=== PATIENT | male | born 1945 | race Asian ===

== ENCOUNTER 2021-05-16 05:01 | Day surgery (SDC) | payer OTHER ==
[2021-05-15 12:16] VITALS: BMI 25.8
[~2021-05-16 05:01] MED LIST: ACETAMINOPHEN 325 MG TABLET (FP) PO PRN
[2021-05-16] MEDS ORDERED: BUPIVACAINE HCL/PF 0.75% 10 ML VIAL ONE (07:35)
[2021-05-16] MEDS ORDERED: POVIDONE-IODINE 5% OPHTHALMIC PREP 30 ML SOLUTION ONE (07:36)
[2021-05-16] MEDS ORDERED: LIDOCAINE HCL/PF 1% SDV 5ML VIAL ONE (07:36)
[2021-05-16] MEDS ORDERED: LIDOCAINE HCL/PF 2% SDV 5ML VIAL ONE (07:36)
[2021-05-16] MEDS ORDERED: OFLOXACIN 0.3% OPHTHALMIC SOLUTION 5 ML BOTTLE ONE (07:55)
[2021-05-16] MEDS ORDERED: KETOROLAC TROMETHAMINE 0.5% EYE DROP 1 DROP DROPS ONE (07:55)
[2021-05-16] MEDS ORDERED: TROPICAMIDE 1% OPHTH SOLN 15 ML BOTTLE ONE (07:55)
[2021-05-16] MEDS ORDERED: CYCLOPENTOLATE HCL 1% OPHTH SOLN 2 ML BOTTLE ONE (07:56)
[2021-05-16] MEDS ORDERED: PHENYLEPHRINE 2.5% OPTHALMIC DROP BOTTLE ONE (07:56)
[2021-05-16] MEDS ORDERED: PHENYLEPHRINE/KETOROLAC 4 ML VIAL IO ONE ×2 (08:15→10:04)
[2021-05-16] MEDS ORDERED: OFLOXACIN 0.3% OPHTHALMIC SOLUTION 5 ML BOTTLE OP SCH (08:30)
[2021-05-16] MEDS ORDERED: KETOROLAC TROMETHAMINE 0.5% EYE DROP 1 DROP DROPS OP SCH (08:30)
[2021-05-16] MEDS ORDERED: CYCLOPENTOLATE HCL 1% OPHTH SOLN 2 ML BOTTLE OP SCH (08:30)
[2021-05-16] MEDS ORDERED: PHENYLEPHRINE 2.5% OPHTH SOLN 15 ML BOTTLE OP SCH (08:30)
[2021-05-16] MEDS ORDERED: TROPICAMIDE 1% OPHTH SOLN 15 ML BOTTLE OP SCH (08:30)
[2021-05-16] MEDS ORDERED: TETRACAINE 0.5% OPHTH SOLN 2 ML BOTTLE OS ONE ×2 (10:00)
[2021-05-16] MEDS ORDERED: POVIDONE-IODINE 5% OPHTHALMIC PREP 30 ML SOLUTION OS ONE ×2 (10:01)
[2021-05-16] MEDS ORDERED: BSS (NA/CA/MG/K) BALANCED SALT SOLUTION OPHTH SOLN 15 ML BOTTLE OS ONE (10:02)
[2021-05-16] MEDS ORDERED: CHONDROITIN SU A/HYALUR SOD 1 KIT IO ONE (10:03)
[2021-05-16] MEDS ORDERED: LIDOCAINE HCL 1% PRESERVATIVE FREE - 30ML VIAL INF ONE (10:03)
[2021-05-16] MEDS ORDERED: EPINEPHrine 1:1,000 1 MG/1 ML - 30ML VIAL (INJECTION) SQ ONE (10:04)
[2021-05-16] MEDS ORDERED: TETRACAINE 0.5% OPHTH SOLN 2 ML BOTTLE ONE (12:15)
[2021-05-16 14:38] VITALS: BP 141/56; PULSE 72; TEMP 98
== END 2021-05-16 11:30 | disposition home or self-care (01) ==
LOC: JASU-SURG 05:01
PROVIDERS: ATTEND Ophthalmology
PROC: 08RK3JZ Replacement of Left Lens with Synthetic Substitute, Percutaneous Approach (ICD-10-PCS; principal; 2021-05-16 10:00)
DX: H26.9 Unspecified cataract (principal); E11.9 Type 2 diabetes mellitus without complications
CPT/HCPCS: 82962; J1097

== ENCOUNTER 2021-05-30 05:15 | Day surgery (SDC) | payer OTHER ==
[2021-05-28 17:26] VITALS: BMI 25.8
[~2021-05-30 05:15] MED LIST changes: +BSS (NA/CA/MG/K) BALANCED SALT SOLUTION OPHTH SOLN 15 ML BOTTLE IO ONE; +CHONDROITIN SU A/HYALUR SOD 1 KIT IO ONE; +EPINEPHrine/PF 1 MG/1 ML (1:1,000) AMPULE IO ONE; +LIDOCAINE HCL 1% PRESERVATIVE FREE - 30ML VIAL IO ONE
[2021-05-30] MEDS ORDERED: TETRACAINE 0.5% OPHTH SOLN 2 ML BOTTLE ONE (07:16)
[2021-05-30] MEDS ORDERED: POVIDONE-IODINE 5% OPHTHALMIC PREP 30 ML SOLUTION ONE (07:16)
[2021-05-30] MEDS ORDERED: LIDOCAINE HCL/PF 1% SDV 5ML VIAL ONE (07:16)
[2021-05-30] MEDS ORDERED: OFLOXACIN 0.3% OPHTHALMIC SOLUTION 5 ML BOTTLE ONE (08:10)
[2021-05-30] MEDS ORDERED: TROPICAMIDE 1% OPHTH SOLN 15 ML BOTTLE ONE (08:11)
[2021-05-30] MEDS ORDERED: CYCLOPENTOLATE HCL 1% OPHTH SOLN 2 ML BOTTLE ONE (08:11)
[2021-05-30] MEDS ORDERED: KETOROLAC TROMETHAMINE 0.5% EYE DROP 1 DROP DROPS ONE (08:11)
[2021-05-30] MEDS ORDERED: PHENYLEPHRINE 2.5% OPTHALMIC DROP BOTTLE ONE (08:12)
[2021-05-30] MEDS: OFLOXACIN 0.3% OPHTHALMIC SOLUTION 5 ML BOTTLE OP SCH ×3 (08:15→08:40)
[2021-05-30] MEDS: PHENYLEPHRINE 2.5% OPHTH SOLN 15 ML BOTTLE OP SCH ×3 (08:15→08:40)
[2021-05-30] MEDS: KETOROLAC TROMETHAMINE 0.5% EYE DROP 1 DROP DROPS OP SCH ×3 (08:15→08:40)
[2021-05-30] MEDS: CYCLOPENTOLATE HCL 1% OPHTH SOLN 2 ML BOTTLE OP SCH ×3 (08:15→08:40)
[2021-05-30] MEDS: TROPICAMIDE 1% OPHTH SOLN 15 ML BOTTLE OP SCH ×3 (08:15→08:40)
[2021-05-30] MEDS ORDERED: MIDAZOLAM HCL 2 MG/2 ML SINGLE DOSE VIAL ONE (09:13)
[2021-05-30] MEDS ORDERED: TETRACAINE 0.5% OPHTH SOLN 2 ML BOTTLE OD ONE (09:16)
[2021-05-30] MEDS ORDERED: POVIDONE-IODINE 5% OPHTHALMIC PREP 30 ML SOLUTION OD ONE (09:18)
[2021-05-30] MEDS ORDERED: LIDOCAINE HCL 1% PRESERVATIVE FREE - 30ML VIAL IO ONE (09:21)
[2021-05-30] MEDS ORDERED: BSS (NA/CA/MG/K) BALANCED SALT SOLUTION OPHTH SOLN 15 ML BOTTLE IO ONE (09:22)
[2021-05-30] MEDS ORDERED: CHONDROITIN SU A/HYALUR SOD 1 KIT IO ONE (09:23)
[2021-05-30] MEDS ORDERED: EPINEPHrine/PF 1 MG/1 ML (1:1,000) AMPULE IO ONE (09:29)
[2021-05-30] MEDS ORDERED: PHENYLEPHRINE/KETOROLAC 4 ML VIAL IO ONE (09:29)
[2021-05-30 11:25] VITALS: BP 140/70; PULSE 68; TEMP 97
== END 2021-05-30 11:00 | disposition home or self-care (01) ==
LOC: JASU-SURG 05:15
PROVIDERS: ATTEND Ophthalmology
PROC: 08RJ3JZ Replacement of Right Lens with Synthetic Substitute, Percutaneous Approach (ICD-10-PCS; principal; 2021-05-30 09:00)
DX: H26.9 Unspecified cataract (principal); E11.9 Type 2 diabetes mellitus without complications
CPT/HCPCS: 82962; J1097

== ENCOUNTER 2023-12-01 17:46 | Inpatient (IN) | payer OTHER ==
[2023-12-01] MEDS: SODIUM CHLORIDE 0.9% 1000 ML INFUS.BAG IV STA (19:50)
[2023-12-01] MEDS: ACETAMINOPHEN 1000 MG/100 ML BAG IVPB ONE (19:50)
[2023-12-01 19:56] LABS: EOS % 0.1 % (0-4.5); HEMATOCRIT 37.3 % (35.4-49); HEMOGLOBIN 12.1 GM/dL (11.7-16.9); LYMPH % 9.2 % (8-40); MCH 27.8 pg (25.7-33.7); MCHC 32.5 g/dl (32.0-35.9); MEAN CELL VOLUME 85.6 fl (80-96); MEAN PLT VOLUME 7.5 fl (7.5-11.1); MONO % 4.7 % (3.8-10.2); PLATELET COUNT 242 10^3/uL (134-434); RBC 4.36 M/mm3 (4.00-5.60); RDW 15.8 % (11.9-15.9); WHITE BLOOD COUNT 15.7 K/mm3 (4.0-10.0)
[2023-12-01 20:03] LABS: INR 0.98 (0.83-1.09); PROTHROMBIN TIME (PATIENT) 11.1 SEC (9.7-13.0)
[2023-12-01 20:05] LABS: ACTIVATED PTT 32.9 SECONDS (25.2-36.5)
[2023-12-01] MEDS ORDERED: ACETAMINOPHEN INJECTION 100 ML IVPB ONE (20:09)
[2023-12-01] MEDS ORDERED: PIPERACILLIN/TAZOB 4.5 GM 4.5 GM/100 ML BAG IVPB ONE (20:10)
[2023-12-01] MEDS: ONDANSETRON 4 MG/2 ML VIAL IVPUSH ONE (20:10)
[2023-12-01] MEDS: PIPERACILLIN/TAZOBACTAM 4.5 GM VIAL IVPB ONE (20:10)
[2023-12-01] MEDS ORDERED: ONDANSETRON 4 MG/2 ML VIAL ONE (20:11)
[2023-12-01 20:13] LABS: POTASSIUM 4.6 mmol/L (3.5-5.1)
[2023-12-01 20:16] LABS: ALBUMIN 3.2 g/dl (3.4-5.0); CALCIUM 9.2 mg/dL (8.5-10.1)
[2023-12-01 20:17] LABS: BLOOD UREA NITROGEN 25.1 mg/dL (7-18)
[2023-12-01 20:18] LABS: VENOUS BASE EXCESS -0.5 mmol/L (-2-2); VENOUS O2 SATURATION 23.1 % (70-80); VENOUS PCO2 56.5 mmHg (38-52); VENOUS PH 7.302 (7.310-7.410)
[2023-12-01 20:20] LABS: BILIRUBIN,TOTAL 0.6 mg/dL (0.2-1); TOT PROT 6.9 g/dl (6.4-8.2)
[2023-12-01 20:23] LABS: LACTIC ACID 2.7 mmol/L (0.4-2.0)
[2023-12-01] MEDS: VANCOMYCIN 1,250 MG in DEXTROSE 5%-WATER - 500 ML IVPB ONE (21:18)
[2023-12-01] MEDS: SODIUM CHLORIDE 0.9% 500 ML INFUS.BAG IV ONE (21:21)
[2023-12-02 01:12] LABS: LACTIC ACID 2.2 mmol/L (0.4-2.0)
[2023-12-02] MEDS ORDERED: ACETAMINOPHEN INJECTION 100 ML IVPB ONE ×2 (01:23→10:31)
[2023-12-02] MEDS: ACETAMINOPHEN 1000 MG/100 ML BAG IVPB ONE ×2 (01:27→10:31)
[2023-12-02 01:31] LABS: EPI CELLS 9 /uL (0-25.1); HYALINE CASTS 0 /uL (0-3.1); PH,URINE 5.5 (5.0-8.0); URINE APPEARANCE Error; URINE BILIRUBIN NEGATIVE (NEGATIVE); URINE COLOR YELLOW; URINE GLUCOSE (UA) NEGATIVE (NEGATIVE); URINE KETONE NEGATIVE (NEGATIVE); URINE LEUK ESTERASE 2+ (NEGATIVE); URINE NITRITE POSITIVE (NEGATIVE); URINE PROTEIN 1+ (NEGATIVE); URINE RBC 27 /uL (0-23.9); URINE UROBILINOGEN 0.2 mg/dL (0.2-1.0); URINE WBC 1454 /uL (0-25.8)
[2023-12-02] MEDS: SODIUM CHLORIDE 1,000 ML IV STA ×2 (04:22→16:06)
[2023-12-02] MEDS ORDERED: PIPERACILLIN/TAZOB 3.375 GM 3.375 GM/50 ML BAG IVPB ONE ×2 (05:44→11:07)
[2023-12-02] MEDS: SODIUM CHLORIDE 1,000 ML IV SCH ×2 (06:13→12:37)
[2023-12-02] MEDS: PIPERACILLIN/TAZOB 3.375 GM 3.375 GM in DEXTROSE 5%-WATER - 50 ML IVPB SCH (06:13)
[2023-12-02 06:43] LABS: HEMOGLOBIN 12.1 GM/dL (11.7-16.9); MCH 28.4 pg (25.7-33.7); MCHC 32.7 g/dl (32.0-35.9); MEAN CELL VOLUME 86.9 fl (80-96); MEAN PLT VOLUME 7.9 fl (7.5-11.1); PLATELET COUNT 190 10^3/uL (134-434); RBC 4.26 M/mm3 (4.00-5.60); RDW 15.9 % (11.9-15.9); WHITE BLOOD COUNT 18.1 K/mm3 (4.0-10.0)
[2023-12-02 06:58] LABS: POTASSIUM 4.1 mmol/L (3.5-5.1)
[2023-12-02 07:01] LABS: ALBUMIN 2.7 g/dl (3.4-5.0); BLOOD UREA NITROGEN 20.1 mg/dL (7-18); CALCIUM 8.3 mg/dL (8.5-10.1)
[2023-12-02 07:04] LABS: CREATININE 0.9 mg/dL (0.55-1.3)
[2023-12-02 07:06] LABS: BILIRUBIN,TOTAL 0.8 mg/dL (0.2-1); TOT PROT 6.1 g/dl (6.4-8.2)
[2023-12-02] MEDS ORDERED: INSULIN ASPART SLIDING SCALE (NOVOLOG) 1 VIAL SQ ONE ×3 (07:28→16:55)
[2023-12-02] MEDS: INSULIN ASPART SLIDING SCALE (NOVOLOG) 1 VIAL SQ SCH (07:28)
[2023-12-02] MEDS: TACROLIMUS ANHYDROUS 1 MG CAPSULE PO SCH ×2 (07:46→22:00)
[2023-12-02] MEDS ORDERED: TAMSULOSIN HCL 0.4 MG CAP ONE (09:08)
[2023-12-02] MEDS: TAMSULOSIN HCL 0.4 MG CAP PO SCH (09:19)
[2023-12-02] MEDS ORDERED: APIXABAN 2.5 MG TABLET PO SCH (10:00)
[2023-12-02] MEDS ORDERED: ASCORBIC ACID 500 MG TABLET (FP) ONE (11:06)
[2023-12-02] MEDS ORDERED: VANCOMYCIN 1 GRAM (PRE-DOCKED) 1,000 MG/250 ML BAG IVPB ONE (11:07)
[2023-12-02] MEDS: VANCOMYCIN/WATER FOR INJ (PEG) 1,000 MG/200 ML BAG IVPB SCH (11:30)
[2023-12-02] MEDS: predniSONE 5 MG TABLET (UD) PO SCH (11:30)
[2023-12-02] MEDS: ASCORBIC ACID 500 MG TABLET (FP) PO SCH (11:31)
[2023-12-02] MEDS: SODIUM CHLORIDE 250 ML IV STA (12:37)
[2023-12-02] MEDS: ENOXAPARIN NA (PORCINE) 80 MG/0.8 ML DISP.SYRIN SQ SCH (12:40)
[2023-12-02] MEDS ORDERED: ENOXAPARIN NA (PORCINE) 60 MG/0.6 ML DISP.SYRIN SQ ONE (12:40)
[2023-12-02] MEDS: MEROPENEM 1 GM in DEXTROSE 5%-WATER 100 ML IVPB SCH (17:53)
[2023-12-02] MEDS: MIDODRINE HCL 5 MG TABLET PO SCH (17:53)
[2023-12-02 18:34] VITALS: BMI 22.7
[2023-12-02] MEDS ORDERED: VANCOMYCIN 1,000 MG in DEXTROSE 5%-WATER - 250 ML IVPB SCH (21:00)
[2023-12-02] MEDS: ATORVASTATIN CA 80 MG TABLET (FP) PO SCH (22:51)
[2023-12-03] MEDS ORDERED: PIPERACILLIN/TAZOB 3.375 GM 3.375 GM in DEXTROSE 5%-WATER - 50 ML IVPB SCH (02:00)
[2023-12-03 08:04] LABS: BASO % 0.4 % (0-2.0); EOS % 1.5 % (0-4.5); HEMATOCRIT 32.8 % (35.4-49); LYMPH % 9.9 % (8-40); MCH 28.8 pg (25.7-33.7); MCHC 33.4 g/dl (32.0-35.9); MEAN CELL VOLUME 86.1 fl (80-96); MEAN PLT VOLUME 7.8 fl (7.5-11.1); MONO % 4.7 % (3.8-10.2); NEUT % 83.5 % (42.8-82.8); PLATELET COUNT 190 10^3/uL (134-434); RBC 3.81 M/mm3 (4.00-5.60); WHITE BLOOD COUNT 9.9 K/mm3 (4.0-10.0)
[2023-12-03 08:17] LABS: POTASSIUM 3.8 mmol/L (3.5-5.1)
[2023-12-03 08:20] LABS: INR 1.14 (0.83-1.09); PROTHROMBIN TIME (PATIENT) 12.8 SEC (9.7-13.0)
[2023-12-03 08:22] LABS: CALCIUM 7.7 mg/dL (8.5-10.1)
[2023-12-03 08:23] LABS: ALBUMIN 2.3 g/dl (3.4-5.0); MAGNESIUM 1.5 mg/dL (1.8-2.4)
[2023-12-03 08:25] LABS: CREATININE 0.8 mg/dL (0.55-1.3)
[2023-12-03 08:27] LABS: BILIRUBIN,TOTAL 0.4 mg/dL (0.2-1); TOT PROT 5.5 g/dl (6.4-8.2)
[2023-12-03] MEDS: MAGNESIUM SULF 50% (8.12 MEQ/2 ML-1 GM VIAL) IVPB ONE (12:09)
[2023-12-03] MEDS: INSULIN ASPART SLIDING SCALE (NOVOLOG) 1 VIAL SQ SCH (17:17)
[2023-12-03] MEDS: TACROLIMUS 0.5 MG CAPSULE PO SCH (21:15)
[2023-12-04 07:36] LABS: BASO % 0.5 % (0-2.0); EOS % 2.1 % (0-4.5); HEMATOCRIT 32.1 % (35.4-49); HEMOGLOBIN 10.5 GM/dL (11.7-16.9); LYMPH % 20.3 % (8-40); MCHC 32.6 g/dl (32.0-35.9); MEAN CELL VOLUME 85.9 fl (80-96); MEAN PLT VOLUME 7.8 fl (7.5-11.1); MONO % 5.6 % (3.8-10.2); NEUT % 71.5 % (42.8-82.8); PLATELET COUNT 208 10^3/uL (134-434); RBC 3.73 M/mm3 (4.00-5.60); RDW 16.1 % (11.9-15.9)
[2023-12-04 07:37] LABS: INR 0.98 (0.83-1.09); PROTHROMBIN TIME (PATIENT) 11.1 SEC (9.7-13.0)
[2023-12-04 07:49] LABS: POTASSIUM 4.5 mmol/L (3.5-5.1)
[2023-12-04 07:51] LABS: CALCIUM 8.1 mg/dL (8.5-10.1)
[2023-12-04 07:52] LABS: ALBUMIN 2.3 g/dl (3.4-5.0); BLOOD UREA NITROGEN 13.5 mg/dL (7-18); MAGNESIUM 1.9 mg/dL (1.8-2.4)
[2023-12-04 07:54] LABS: PHOSPHOROUS 1.9 mg/dL (2.5-4.9)
[2023-12-04 07:55] LABS: CREATININE 0.8 mg/dL (0.55-1.3)
[2023-12-04 07:56] LABS: BILIRUBIN,TOTAL 1.1 mg/dL (0.2-1); TOT PROT 5.5 g/dl (6.4-8.2)
[2023-12-04] MEDS: NAPH,MB-DB/K PH,MBDB POWDER PACKET PO ONE (11:12)
[2023-12-04 16:03] LABS: BF WBC & OTHER NUCLEATED CELLS 120 /mm3
[2023-12-04 17:42] LABS: BODY FLUID MONOCYTE 9 %
[2023-12-04 17:43] LABS: BODY FLUID MACROPHAGES 53 %; BODY FLUID MESOTHELIAL 4 %
[2023-12-04] MEDS: APIXABAN 2.5 MG TABLET PO SCH (22:57)
[2023-12-04] MEDS: NAPH,MB-DB/K PH,MBDB POWDER PACKET PO SCH (22:57)
[2023-12-04] MEDS: INSULIN (LEVEMIR) 100 UNITS/ML UNITS SQ SCH (22:57)
[2023-12-04] MEDS: ACETAMINOPHEN 1000 MG/100 ML BAG IVPB ONE (23:00)
[2023-12-05] MEDS: INSULIN (LEVEMIR) 100 UNITS/ML UNITS SQ SCH ×2 (06:00→22:07)
[2023-12-05 06:37] LABS: BASO % 0.2 % (0-2.0); EOS % 1.8 % (0-4.5); HEMATOCRIT 31.6 % (35.4-49); HEMOGLOBIN 10.4 GM/dL (11.7-16.9); LYMPH % 24.1 % (8-40); MCH 28.3 pg (25.7-33.7); MEAN CELL VOLUME 85.7 fl (80-96); MEAN PLT VOLUME 7.2 fl (7.5-11.1); NEUT % 67.9 % (42.8-82.8); PLATELET COUNT 206 10^3/uL (134-434); RBC 3.69 M/mm3 (4.00-5.60); RDW 15.6 % (11.9-15.9); WHITE BLOOD COUNT 7.3 K/mm3 (4.0-10.0)
[2023-12-05 06:39] LABS: INR 1.04 (0.83-1.09)
[2023-12-05 06:59] LABS: POTASSIUM 4.2 mmol/L (3.5-5.1)
[2023-12-05 07:01] LABS: CALCIUM 8.1 mg/dL (8.5-10.1)
[2023-12-05 07:02] LABS: ALBUMIN 2.1 g/dl (3.4-5.0); BLOOD UREA NITROGEN 15.5 mg/dL (7-18); MAGNESIUM 1.8 mg/dL (1.8-2.4)
[2023-12-05 07:05] LABS: CREATININE 0.8 mg/dL (0.55-1.3)
[2023-12-05 07:07] LABS: BILIRUBIN,TOTAL 0.3 mg/dL (0.2-1); TOT PROT 5.2 g/dl (6.4-8.2)
[2023-12-05 08:40] VITALS: RESP 18
[2023-12-05] MEDS: ASPIRIN 81 MG CHEWABLE TABLETS PO SCH (10:10)
[2023-12-05 11:13] LABS: MAGNESIUM 1.5 mg/dL (1.8-2.4)
[2023-12-05 14:11] LABS: BODY FLUID ALBUMIN 2.4 g/dL (Not Estab.)
[2023-12-06] MEDS: INSULIN (LEVEMIR) 100 UNITS/ML UNITS SQ SCH ×2 (06:06→21:41)
[2023-12-06 07:16] LABS: HEMATOCRIT 34.6 % (35.4-49); HEMOGLOBIN 11.3 GM/dL (11.7-16.9); MCHC 32.6 g/dl (32.0-35.9); MEAN CELL VOLUME 85.8 fl (80-96); MEAN PLT VOLUME 7.2 fl (7.5-11.1); PLATELET COUNT 205 10^3/uL (134-434); RBC 4.03 M/mm3 (4.00-5.60); RDW 15.7 % (11.9-15.9); WHITE BLOOD COUNT 7.2 K/mm3 (4.0-10.0)
[2023-12-06 07:41] LABS: CALCIUM 8.7 mg/dL (8.5-10.1)
[2023-12-06 07:43] LABS: CREATININE 0.8 mg/dL (0.55-1.3)
[2023-12-06] MEDS ORDERED: INSULIN ASPART SLIDING SCALE (NOVOLOG) 1 VIAL SQ ONE (11:31)
[2023-12-06] MEDS: VITAMIN B COMP W-C 1 EA TABLET (NEPHRO-VITE) PO SCH (14:36)
[2023-12-07] MEDS: INSULIN (LEVEMIR) 100 UNITS/ML UNITS SQ SCH ×2 (06:10→22:11)
[2023-12-07 08:38] LABS: POTASSIUM 4.1 mmol/L (3.5-5.1)
[2023-12-07 08:54] LABS: HEMATOCRIT 36.9 % (35.4-49); MCH 27.9 pg (25.7-33.7); MCHC 32.5 g/dl (32.0-35.9); MEAN CELL VOLUME 85.6 fl (80-96); MEAN PLT VOLUME 7.8 fl (7.5-11.1); PLATELET COUNT 218 10^3/uL (134-434); RBC 4.31 M/mm3 (4.00-5.60); RDW 15.6 % (11.9-15.9); WHITE BLOOD COUNT 7.8 K/mm3 (4.0-10.0)
[2023-12-07 08:59] LABS: BILIRUBIN,TOTAL 0.6 mg/dL (0.2-1); CALCIUM 9.1 mg/dL (8.5-10.1); MAGNESIUM 1.7 mg/dL (1.8-2.4)
[2023-12-07 09:00] LABS: TOT PROT 6.6 g/dl (6.4-8.2)
[2023-12-07 09:01] LABS: CREATININE 0.7 mg/dL (0.55-1.3); PHOSPHOROUS 2.2 mg/dL (2.5-4.9)
[2023-12-07 09:07] LABS: ALBUMIN 2.8 g/dl (3.4-5.0)
[2023-12-07] MEDS: COLLAGENASE CLOSTRIDIUM HIST. 30 GRAMS TUBE TP SCH ×2 (14:55→16:05)
[2023-12-07] MEDS: INSULIN ASPART SLIDING SCALE (NOVOLOG) 1 VIAL SQ SCH (18:12)
[2023-12-07] MEDS: MEROPENEM 1 GM in DEXTROSE 5%-WATER 100 ML IVPB SCH (18:12)
[2023-12-07] MEDS: MIDODRINE HCL 5 MG TABLET PO SCH (18:13)
[2023-12-07] MEDS: APIXABAN 2.5 MG TABLET PO SCH (22:12)
[2023-12-07] MEDS: ATORVASTATIN CA 80 MG TABLET (FP) PO SCH (22:12)
[2023-12-07] MEDS: TACROLIMUS 0.5 MG CAPSULE PO SCH (22:13)
[2023-12-08] MEDS: INSULIN (LEVEMIR) 100 UNITS/ML UNITS SQ SCH (06:05)
[2023-12-08] MEDS: TACROLIMUS ANHYDROUS 1 MG CAPSULE PO SCH (06:06)
[2023-12-08 07:09] VITALS: PULSE 74; TEMP 98.4
[2023-12-08] MEDS ORDERED: MAGNESIUM SULF 50% (8.12 MEQ/2 ML-1 GM VIAL) IVPB ONE (08:27)
[2023-12-08] MEDS: predniSONE 5 MG TABLET (UD) PO SCH (11:40)
[2023-12-08] MEDS: VITAMIN B COMP W-C 1 EA TABLET (NEPHRO-VITE) PO SCH (11:40)
[2023-12-08] MEDS: TAMSULOSIN HCL 0.4 MG CAP PO SCH (11:41)
[2023-12-08] MEDS: ASPIRIN 81 MG CHEWABLE TABLETS PO SCH (11:41)
[2023-12-08] MEDS: ASCORBIC ACID 500 MG TABLET (FP) PO SCH (11:41)
[2023-12-08] MEDS: NAPH,MB-DB/K PH,MBDB POWDER PACKET PO ONE (11:42)
[2023-12-08] MEDS: MAGNESIUM SULF 50% (8.12 MEQ/2 ML-1 GM VIAL) IVPB ONE (11:50)
[2023-12-08] MEDS ORDERED: INSULIN ASPART SLIDING SCALE (NOVOLOG) 1 VIAL SQ ONE (12:10)
[2023-12-08 14:12] VITALS: BP 102/61
== END 2023-12-08 15:10 | disposition home or self-care (01) | DRG 871 ==
LOC: JER 17:46 → JERBED 12-02 01:26 → J4W 12-02 17:32 → J8W 12-07 16:04
PROVIDERS: ADMIT Internal Medicine; ATTEND Internal Medicine
PROC: 0W993ZX Drainage of Right Pleural Cavity, Percutaneous Approach, Diagnostic (ICD-10-PCS; principal; 2023-12-04)
DX: A41.9 Sepsis, unspecified organism (principal); G93.41 Metabolic encephalopathy; N39.0 Urinary tract infection, site not specified; J90 Pleural effusion, not elsewhere classified; J95.811 Postprocedural pneumothorax; Z94.0 Kidney transplant status; I25.10 Atherosclerotic heart disease of native coronary artery without angina pectoris; E11.319 Type 2 diabetes mellitus with unspecified diabetic retinopathy without macular edema; E11.40 Type 2 diabetes mellitus with diabetic neuropathy, unspecified; N31.9 Neuromuscular dysfunction of bladder, unspecified; I48.0 Paroxysmal atrial fibrillation; L89.622 Pressure ulcer of left heel, stage 2; R19.7 Diarrhea, unspecified; Y83.8 Other surgical procedures as the cause of abnormal reaction of the patient, or of later complication, without mention of misadventure at the time of the procedure; E83.39 Other disorders of phosphorus metabolism
CPT/HCPCS: 0241U-QW; 32555; 36415; 71045-TC-FY; 71046-TC-FY; 71250-TC; 76775-TC; 76776-TC; 76942; 80048; 80053; 80197; 81003; 82042; 82140; 82150; 82272; 82465; 82803; 82945; 82962; 83036; 83605; 83615; 83735; 83986; 84100; 84157; 84478; 84484; 85025; 85027; 85610; 85730; 86850; 86900; 86901; 87040; 87070; 87075; 87081; 87086; 87102; 87116; 87186; 87205; 87206; 87210; 88108; 88305-TC; 93005; 93010; 93306-TC; 97116-GP; 97162-GP; 99285-25; J0131

== ENCOUNTER 2024-02-10 09:46 | Inpatient (IN) | payer OTHER ==
[2024-02-10 10:55] LABS: BASO % 0.7 % (0-2.0); EOS % 1.8 % (0-4.5); HEMATOCRIT 36.8 % (35.4-49); HEMOGLOBIN 12.2 GM/dL (11.7-16.9); LYMPH % 12.7 % (8-40); MCH 28.2 pg (25.7-33.7); MCHC 33.2 g/dl (32.0-35.9); MEAN CELL VOLUME 84.8 fl (80-96); MONO % 6.5 % (3.8-10.2); NEUT % 78.3 % (42.8-82.8); PLATELET COUNT 213 10^3/uL (134-434); RBC 4.34 M/mm3 (4.00-5.60); WHITE BLOOD COUNT 7.5 K/mm3 (4.0-10.0)
[2024-02-10 11:05] LABS: INR 0.92 (0.83-1.09); PROTHROMBIN TIME (PATIENT) 10.6 SEC (9.7-13.0)
[2024-02-10 11:07] LABS: ACTIVATED PTT 32.7 SECONDS (25.2-36.5)
[2024-02-10 11:13] LABS: POTASSIUM 4.1 mmol/L (3.5-5.1)
[2024-02-10 11:15] LABS: CALCIUM 9.5 mg/dL (8.5-10.1)
[2024-02-10 11:16] LABS: ALBUMIN 2.8 g/dl (3.4-5.0); BLOOD UREA NITROGEN 24.2 mg/dL (7-18)
[2024-02-10 11:19] LABS: CREATININE 1.2 mg/dL (0.55-1.3)
[2024-02-10 11:20] LABS: BILIRUBIN,TOTAL 0.7 mg/dL (0.2-1); TOT PROT 6.9 g/dl (6.4-8.2)
[2024-02-10] MEDS: SODIUM CHLORIDE 0.9% 500 ML INFUS.BAG IV ONE (11:40)
[2024-02-10 13:39] LABS: EPI CELLS 1 /uL (0-25.1); HYALINE CASTS 0 /uL (0-3.1); URINE APPEARANCE CLOUDY; URINE BACTERIA >9,000 /uL (0-1359); URINE BILIRUBIN NEGATIVE (NEGATIVE); URINE COLOR YELLOW; URINE GLUCOSE (UA) NEGATIVE (NEGATIVE); URINE KETONE NEGATIVE (NEGATIVE); URINE LEUK ESTERASE 3+ (NEGATIVE); URINE NITRITE NEGATIVE (NEGATIVE); URINE PROTEIN TRACE (NEGATIVE); URINE RBC 19 /uL (0-23.9); URINE UROBILINOGEN 0.2 mg/dL (0.2-1.0); URINE WBC 904 /uL (0-25.8)
[2024-02-10] MEDS ORDERED: CEFTRIAXONE 1 GM/50 ML BAG ONE (14:14)
[2024-02-10] MEDS ORDERED: AZITHROMYCIN IVPB 500 MG/250 ML BAG IVPB ONE (14:14)
[2024-02-10] MEDS: CEFTRIAXONE 1,000 MG in DEXTROSE 5%-WATER - 50 ML IVPB ONE (14:25)
[2024-02-10] MEDS: AZITHROMYCIN IVPB 500 MG in DEXTROSE 5%-WATER - 250 ML IVPB ONE (14:48)
[2024-02-10 17:31] VITALS: BMI 20.5
[2024-02-10] MEDS: MEROPENEM 1 GM in DEXTROSE 5%-WATER 100 ML IVPB SCH (18:49)
[2024-02-10] MEDS ORDERED: HEPARIN NA (PORCINE) 5,000 UNITS/ML 1ML VIAL SQ SCH (22:00)
[2024-02-10] MEDS: ATORVASTATIN CA 80 MG TABLET (FP) PO SCH (22:08)
[2024-02-10] MEDS: TACROLIMUS 0.5 MG CAPSULE PO SCH (22:08)
[2024-02-10] MEDS: APIXABAN 2.5 MG TABLET PO SCH (22:08)
[2024-02-10] MEDS: SENNOSIDES 8.6MG TABLET (FP) PO SCH (22:08)
[2024-02-11] MEDS: TACROLIMUS ANHYDROUS 1 MG CAPSULE PO SCH (06:41)
[2024-02-11 08:59] LABS: BASO % 0.8 % (0-2.0); HEMOGLOBIN 11.5 GM/dL (11.7-16.9); LYMPH % 21.3 % (8-40); MCH 27.8 pg (25.7-33.7); MCHC 32.7 g/dl (32.0-35.9); MEAN CELL VOLUME 85.1 fl (80-96); MEAN PLT VOLUME 8.3 fl (7.5-11.1); MONO % 7.5 % (3.8-10.2); NEUT % 68.4 % (42.8-82.8); PLATELET COUNT 198 10^3/uL (134-434); RBC 4.11 M/mm3 (4.00-5.60); RDW 14.9 % (11.9-15.9); WHITE BLOOD COUNT 6.3 K/mm3 (4.0-10.0)
[2024-02-11 09:18] LABS: POTASSIUM 4.7 mmol/L (3.5-5.1)
[2024-02-11] MEDS: predniSONE 5 MG TABLET (UD) PO SCH (09:46)
[2024-02-11] MEDS: TAMSULOSIN HCL 0.4 MG CAP PO SCH (09:46)
[2024-02-11] MEDS: FERROUS SO4 325 MG TABLET (FP) PO SCH (09:46)
[2024-02-11] MEDS: ASPIRIN 81 MG CHEWABLE TABLETS PO SCH (09:46)
[2024-02-11] MEDS ORDERED: SODIUM CHLORIDE 0.45% 1,000 ML IV SCH (13:15)
[2024-02-11 15:37] VITALS: RESP 18
[2024-02-11] MEDS: MEROPENEM 1 GM in DEXTROSE 5%-WATER 100 ML IVPB SCH ×2 (17:40→19:31)
[2024-02-12 10:05] LABS: BASO % 0.7 % (0-2.0); EOS % 2.1 % (0-4.5); HEMATOCRIT 35.5 % (35.4-49); HEMOGLOBIN 11.9 GM/dL (11.7-16.9); LYMPH % 23.4 % (8-40); MCH 28.2 pg (25.7-33.7); MCHC 33.4 g/dl (32.0-35.9); MEAN CELL VOLUME 84.5 fl (80-96); MEAN PLT VOLUME 8.3 fl (7.5-11.1); MONO % 7.3 % (3.8-10.2); NEUT % 66.5 % (42.8-82.8); PLATELET COUNT 191 10^3/uL (134-434); RBC 4.21 M/mm3 (4.00-5.60); RDW 14.5 % (11.9-15.9); WHITE BLOOD COUNT 7.2 K/mm3 (4.0-10.0)
[2024-02-12 10:22] LABS: POTASSIUM 4.6 mmol/L (3.5-5.1)
[2024-02-12 10:29] LABS: ALBUMIN 2.6 g/dl (3.4-5.0); BLOOD UREA NITROGEN 22.7 mg/dL (7-18); CALCIUM 8.9 mg/dL (8.5-10.1); MAGNESIUM 1.7 mg/dL (1.8-2.4)
[2024-02-12 10:32] LABS: CREATININE 1.2 mg/dL (0.55-1.3)
[2024-02-12 10:34] LABS: BILIRUBIN,TOTAL 0.7 mg/dL (0.2-1); TOT PROT 6.3 g/dl (6.4-8.2)
[2024-02-12] MEDS ORDERED: predniSONE 5 MG TABLET (UD) PO SCH (16:42)
[2024-02-12] MEDS: AMINO ACIDS/PROTEIN HYDROLYS 30 ML LIQUID.PKT PO SCH (17:49)
[2024-02-13] MEDS: predniSONE 5 MG TABLET (UD) PO SCH (09:12)
[2024-02-13] MEDS: NITROFURANTOIN MONOHYD/M-CRYST 100 MG CAPSULE PO SCH (09:13)
[2024-02-13 10:02] LABS: BASO % 0.5 % (0-2.0); EOS % 2.2 % (0-4.5); HEMATOCRIT 35.8 % (35.4-49); HEMOGLOBIN 12.1 GM/dL (11.7-16.9); MCH 28.2 pg (25.7-33.7); MCHC 33.8 g/dl (32.0-35.9); MEAN CELL VOLUME 83.4 fl (80-96); MEAN PLT VOLUME 8.2 fl (7.5-11.1); MONO % 5.9 % (3.8-10.2); NEUT % 67.4 % (42.8-82.8); PLATELET COUNT 213 10^3/uL (134-434); RBC 4.29 M/mm3 (4.00-5.60); RDW 14.7 % (11.9-15.9); WHITE BLOOD COUNT 8.3 K/mm3 (4.0-10.0)
[2024-02-13 10:12] LABS: POTASSIUM 4.1 mmol/L (3.5-5.1)
[2024-02-13 10:17] LABS: CALCIUM 8.9 mg/dL (8.5-10.1)
[2024-02-13 10:18] LABS: ALBUMIN 2.7 g/dl (3.4-5.0); BLOOD UREA NITROGEN 23.2 mg/dL (7-18); MAGNESIUM 1.8 mg/dL (1.8-2.4)
[2024-02-13 10:21] LABS: CREATININE 1.2 mg/dL (0.55-1.3)
[2024-02-13 10:22] LABS: BILIRUBIN,TOTAL 0.5 mg/dL (0.2-1); TOT PROT 6.2 g/dl (6.4-8.2)
[2024-02-13] MEDS ORDERED: INSULIN ASPART SLIDING SCALE (NOVOLOG) 1 VIAL SQ ONE ×2 (11:00→13:25)
[2024-02-13] MEDS: INSULIN ASPART SLIDING SCALE (NOVOLOG) 1 VIAL SQ SCH (11:38)
[2024-02-13] MEDS: INSULIN (LEVEMIR) 100 UNITS/ML UNITS SQ ONE (11:50)
[2024-02-13 14:54] VITALS: BP 117/67; PULSE 72; TEMP 97.5
[2024-02-13] MEDS ORDERED: INSULIN (LEVEMIR) 100 UNITS/ML UNITS SQ SCH (22:00)
== END 2024-02-13 14:50 | disposition home or self-care (01) | DRG 689 ==
LOC: JER 09:46 → JERBED 14:44 → J8W 15:38
PROVIDERS: ADMIT Internal Medicine; ATTEND Nurse Practitioner Family
DX: N39.0 Urinary tract infection, site not specified (principal); G93.41 Metabolic encephalopathy; Z94.0 Kidney transplant status; D84.9 Immunodeficiency, unspecified; Z16.12 Extended spectrum beta lactamase (ESBL) resistance; E11.9 Type 2 diabetes mellitus without complications; F03.90 Unspecified dementia, unspecified severity, without behavioral disturbance, psychotic disturbance, mood disturbance, and anxiety; E11.22 Type 2 diabetes mellitus with diabetic chronic kidney disease; N18.9 Chronic kidney disease, unspecified; B96.20 Unspecified Escherichia coli [E. coli] as the cause of diseases classified elsewhere
CPT/HCPCS: 0241U-QW; 36415; 70450-TC; 71045-TC-FY; 80048; 80053; 81003; 82962; 83735; 84484; 85025; 85610; 85730; 86850; 86900; 86901; 87040; 87086; 87186; 93005; 93010; 94761; 97116-GP; 97161-GP; 99285-25

== ENCOUNTER 2024-03-19 22:10 | Inpatient (IN) | payer OTHER ==
[2024-03-19] MEDS ORDERED: ACETAMINOPHEN INJECTION 100 ML ONE (23:50)
[2024-03-19 23:54] LABS: VENOUS BASE EXCESS 3.3 mmol/L (-2-2); VENOUS O2 SATURATION 67.5 % (70-80); VENOUS PCO2 45.9 mmHg (38-52); VENOUS PH 7.413 (7.310-7.410)
[2024-03-20 00:01] LABS: BASO % 0.6 % (0-2.0); EOS % 0.5 % (0-4.5); HEMATOCRIT 36.3 % (35.4-49); HEMOGLOBIN 11.8 GM/dL (11.7-16.9); LYMPH % 5.1 % (8-40); MCH 27.6 pg (25.7-33.7); MCHC 32.6 g/dl (32.0-35.9); MEAN CELL VOLUME 84.4 fl (80-96); MEAN PLT VOLUME 8.2 fl (7.5-11.1); MONO % 4.4 % (3.8-10.2); NEUT % 89.4 % (42.8-82.8); PLATELET COUNT 186 10^3/uL (134-434); RDW 15.8 % (11.9-15.9)
[2024-03-20] MEDS: ACETAMINOPHEN 1000 MG/100 ML BAG IVPB ONE ×2 (00:07→13:04)
[2024-03-20 00:17] LABS: POTASSIUM 4.1 mmol/L (3.5-5.1)
[2024-03-20 00:19] LABS: CALCIUM 9.3 mg/dL (8.5-10.1)
[2024-03-20 00:20] LABS: ALBUMIN 3.2 g/dl (3.4-5.0); MAGNESIUM 1.7 mg/dL (1.8-2.4)
[2024-03-20 00:23] LABS: CREATININE 1.2 mg/dL (0.55-1.3)
[2024-03-20 00:25] LABS: PHOSPHOROUS 2.3 mg/dL (2.5-4.9); TOT PROT 6.7 g/dl (6.4-8.2)
[2024-03-20 00:39] LABS: BILIRUBIN,TOTAL 0.8 mg/dL (0.2-1)
[2024-03-20] MEDS ORDERED: CEFEPIME 2 GM/100 ML BAG IVPB ONE (00:40)
[2024-03-20] MEDS: CEFEPIME HCL 2 GM VIAL (RESTRICTED TO ID) IVPB ONE (00:49)
[2024-03-20] MEDS: SODIUM CHLORIDE 0.9% 500 ML INFUS.BAG IV ONE ×2 (00:50→12:40)
[2024-03-20] MEDS: PIPERACILLIN/TAZOB 4.5 GM 4.5 GM in DEXTROSE 5%-WATER 100 ML IVPB ONE (00:50)
[2024-03-20 01:18] LABS: INR 0.92 (0.83-1.09); PROTHROMBIN TIME (PATIENT) 10.6 SEC (9.7-13.0)
[2024-03-20 01:20] LABS: ACTIVATED PTT 34.1 SECONDS (25.2-36.5)
[2024-03-20] MEDS ORDERED: VANCOMYCIN/WATER 1250 MG 1,250 MG/250 ML BAG IVPB ONE (01:23)
[2024-03-20 02:38] LABS: EPI CELLS 3 /uL (0-25.1); HYALINE CASTS 0 /uL (0-3.1); PH,URINE 5.5 (5.0-8.0); URINE APPEARANCE CLOUDY; URINE BACTERIA 3518 /uL (0-1359); URINE BILIRUBIN NEGATIVE (NEGATIVE); URINE COLOR YELLOW; URINE GLUCOSE (UA) NEGATIVE (NEGATIVE); URINE KETONE NEGATIVE (NEGATIVE); URINE LEUK ESTERASE 3+ (NEGATIVE); URINE NITRITE POSITIVE (NEGATIVE); URINE PROTEIN 1+ (NEGATIVE); URINE RBC 49 /uL (0-23.9); URINE UROBILINOGEN 0.2 mg/dL (0.2-1.0); URINE WBC 1705 /uL (0-25.8)
[2024-03-20] MEDS: VANCOMYCIN/WATER 1250 MG 1,250 MG/250 ML BAG IVPB ONE (02:52)
[2024-03-20] MEDS ORDERED: ACETAMINOPHEN 500 MG TABLET (FP) PO PRN ×2 (08:02→18:17)
[2024-03-20 09:26] LABS: BASO % 0.5 % (0-2.0); EOS % 0.5 % (0-4.5); HEMATOCRIT 39.7 % (35.4-49); HEMOGLOBIN 12.4 GM/dL (11.7-16.9); LYMPH % 34.7 % (8-40); MCH 27.9 pg (25.7-33.7); MCHC 31.1 g/dl (32.0-35.9); MEAN CELL VOLUME 89.7 fl (80-96); MONO % 0.7 % (3.8-10.2); NEUT % 63.6 % (42.8-82.8); PLATELET COUNT 186 10^3/uL (134-434); RBC 4.43 M/mm3 (4.00-5.60); RDW 15.9 % (11.9-15.9); WHITE BLOOD COUNT 5.1 K/mm3 (4.0-10.0)
[2024-03-20] MEDS: MEROPENEM 1 GM in DEXTROSE 5%-WATER 100 ML IVPB SCH (09:30)
[2024-03-20] MEDS: FERROUS SO4 325 MG TABLET (FP) PO SCH (09:31)
[2024-03-20] MEDS: MIDODRINE HCL 5 MG TABLET PO SCH ×2 (09:31→15:14)
[2024-03-20] MEDS: TAMSULOSIN HCL 0.4 MG CAP PO SCH (09:31)
[2024-03-20] MEDS: APIXABAN 2.5 MG TABLET PO SCH (09:31)
[2024-03-20] MEDS: LACTATED RINGERS SOLUTION 1,000 ML/1,000 ML INFUS.BAG IV SCH ×2 (09:32→20:30)
[2024-03-20] MEDS: TACROLIMUS ANHYDROUS 1 MG CAPSULE PO SCH (09:36)
[2024-03-20] MEDS: predniSONE 10 MG TABLET (UD) PO SCH (09:36)
[2024-03-20] MEDS ORDERED: predniSONE 5 MG TABLET (UD) PO SCH (10:00)
[2024-03-20] MEDS ORDERED: INSULIN ASPART SLIDING SCALE (NOVOLOG) 1 VIAL SQ ONE (11:20)
[2024-03-20] MEDS: INSULIN ASPART SLIDING SCALE (NOVOLOG) 1 VIAL SQ SCH ×2 (11:26→21:41)
[2024-03-20 12:47] LABS: CALCIUM 9.7 mg/dL (8.5-10.1); MAGNESIUM 1.7 mg/dL (1.8-2.4)
[2024-03-20 12:49] LABS: ALBUMIN 3.2 g/dl (3.4-5.0); BLOOD UREA NITROGEN 27.4 mg/dL (7-18)
[2024-03-20] MEDS ORDERED: ACETAMINOPHEN 1000 MG/100 ML BAG IVPB PRN ×2 (12:51→18:17)
[2024-03-20 12:52] LABS: BILIRUBIN,TOTAL 1.3 mg/dL (0.2-1); CREATININE 1.5 mg/dL (0.55-1.3); TOT PROT 7.1 g/dl (6.4-8.2)
[2024-03-20] MEDS ORDERED: HEPARIN NA (PORCINE) 5,000 UNITS/ML 1ML VIAL SQ SCH (14:00)
[2024-03-20] MEDS: LACTATED RINGERS SOLUTION 1,000 ML/1,000 ML INFUS.BAG IV STA ×2 (14:02→16:44)
[2024-03-20] MEDS: HYDROCORTISONE SOD SUCCINATE 100 MG/2 ML VIAL IVPUSH SCH ×2 (15:15→20:31)
[2024-03-20 17:50] LABS: ARTERIAL BLD GAS O2 SATURATION 99.8 % (95-98); ARTERIAL BLOOD GAS BASE EXCESS -3.8 mmol/L (-2-2); ARTERIAL BLOOD GAS PO2 441.5 mmHg (80-100)
[2024-03-20 20:24] LABS: HEMATOCRIT 33.5 % (35.4-49); HEMOGLOBIN 10.8 GM/dL (11.7-16.9); MCH 27.5 pg (25.7-33.7); MCHC 32.3 g/dl (32.0-35.9); MEAN CELL VOLUME 85.1 fl (80-96); MEAN PLT VOLUME 7.7 fl (7.5-11.1); PLATELET COUNT 153 10^3/uL (134-434); RBC 3.94 M/mm3 (4.00-5.60); RDW 15.9 % (11.9-15.9); WHITE BLOOD COUNT 22.2 K/mm3 (4.0-10.0)
[2024-03-20] MEDS: LACTATED RINGERS SOLUTION 1,000 ML/1,000 ML INFUS.BAG IV ONE (20:30)
[2024-03-20] MEDS: NOREPINEPHRINE BITARTRATE 4,000 MCG in DEXTROSE 5%-WATER - 496 ML IV SCH (20:33)
[2024-03-20 20:38] LABS: POTASSIUM 4.7 mmol/L (3.5-5.1)
[2024-03-20 20:40] LABS: ALBUMIN 2.6 g/dl (3.4-5.0); BLOOD UREA NITROGEN 31.5 mg/dL (7-18); CALCIUM 8.5 mg/dL (8.5-10.1)
[2024-03-20 20:44] LABS: CREATININE 1.2 mg/dL (0.55-1.3)
[2024-03-20 20:45] LABS: BILIRUBIN,TOTAL 0.8 mg/dL (0.2-1); TOT PROT 5.7 g/dl (6.4-8.2)
[2024-03-20 21:02] LABS: ANISOCYTOSIS 1+; MACROCYTOSIS 0; OVALOCYTE 1+
[2024-03-20] MEDS: TACROLIMUS 0.5 MG CAPSULE PO SCH (21:34)
[2024-03-20] MEDS ORDERED: INSULIN (LEVEMIR) 100 UNITS/ML UNITS SQ SCH (22:00)
[2024-03-20] MEDS ORDERED: ATORVASTATIN CA 80 MG TABLET (FP) PO SCH (22:00)
[2024-03-20] MEDS ORDERED: SENNOSIDES 8.6MG TABLET (FP) PO SCH (22:00)
[2024-03-20] MEDS ORDERED: TACROLIMUS 0.5 MG CAPSULE PO SCH (22:00)
[2024-03-21] MEDS: MEROPENEM 1 GM in DEXTROSE 5%-WATER 100 ML IVPB SCH ×3 (01:33→19:35)
[2024-03-21] MEDS ORDERED: MEROPENEM 1 GM in DEXTROSE 5%-WATER 100 ML IVPB SCH (02:00)
[2024-03-21] MEDS: TACROLIMUS ANHYDROUS 1 MG CAPSULE PO SCH (06:00)
[2024-03-21] MEDS ORDERED: INSULIN ASPART SLIDING SCALE (NOVOLOG) 1 VIAL SQ SCH (07:00)
[2024-03-21 08:11] LABS: HEMATOCRIT 33.6 % (35.4-49); HEMOGLOBIN 10.9 GM/dL (11.7-16.9); MCH 27.8 pg (25.7-33.7); MCHC 32.4 g/dl (32.0-35.9); MEAN CELL VOLUME 85.9 fl (80-96); MEAN PLT VOLUME 8.6 fl (7.5-11.1); PLATELET COUNT 173 10^3/uL (134-434); RBC 3.91 M/mm3 (4.00-5.60); RDW 15.5 % (11.9-15.9); WHITE BLOOD COUNT 24.8 K/mm3 (4.0-10.0)
[2024-03-21 08:29] LABS: POTASSIUM 4.1 mmol/L (3.5-5.1)
[2024-03-21 08:37] LABS: CALCIUM 8.5 mg/dL (8.5-10.1)
[2024-03-21 08:38] LABS: ALBUMIN 2.4 g/dl (3.4-5.0); BLOOD UREA NITROGEN 33.4 mg/dL (7-18); MAGNESIUM 1.6 mg/dL (1.8-2.4)
[2024-03-21 08:40] LABS: CREATININE 1.2 mg/dL (0.55-1.3)
[2024-03-21 08:42] LABS: BILIRUBIN,TOTAL 0.6 mg/dL (0.2-1); TOT PROT 5.6 g/dl (6.4-8.2)
[2024-03-21] MEDS: MIDODRINE HCL 5 MG TABLET PO SCH (09:47)
[2024-03-21] MEDS: TAMSULOSIN HCL 0.4 MG CAP PO SCH (09:48)
[2024-03-21] MEDS: TACROLIMUS ANHYDROUS 1 MG CAPSULE PO ONE (09:48)
[2024-03-21] MEDS: MEROPENEM 1 GM in DEXTROSE 5%-WATER 100 ML IVPB ONE (10:52)
[2024-03-21] MEDS: MAGNESIUM SULFATE IN WATER 2 GM/50 ML IVPB IVPB ONE (10:52)
[2024-03-21] MEDS: NOREPINEPHRINE BITARTRATE/D5W 8 MG/250 ML BAG IVPB SCH (17:37)
[2024-03-21] MEDS ORDERED: INSULIN (LEVEMIR) 100 UNITS/ML UNITS SQ ONE (20:41)
[2024-03-21] MEDS: INSULIN (LEVEMIR) 100 UNITS/ML UNITS SQ SCH (21:01)
[2024-03-22 07:37] LABS: HEMOGLOBIN 10.4 GM/dL (11.7-16.9); MCH 28.1 pg (25.7-33.7); MCHC 33.6 g/dl (32.0-35.9); MEAN CELL VOLUME 83.5 fl (80-96); MEAN PLT VOLUME 8.7 fl (7.5-11.1); PLATELET COUNT 142 10^3/uL (134-434); RBC 3.71 M/mm3 (4.00-5.60); RDW 15.9 % (11.9-15.9); WHITE BLOOD COUNT 14.1 K/mm3 (4.0-10.0)
[2024-03-22 07:59] LABS: ALBUMIN 2.4 g/dl (3.4-5.0); BLOOD UREA NITROGEN 32.7 mg/dL (7-18)
[2024-03-22 08:02] LABS: PHOSPHOROUS 2.4 mg/dL (2.5-4.9)
[2024-03-22 08:03] LABS: BILIRUBIN,TOTAL 0.4 mg/dL (0.2-1)
[2024-03-22 08:04] LABS: TOT PROT 5.3 g/dl (6.4-8.2)
[2024-03-22 08:18] LABS: CALCIUM 8.8 mg/dL (8.5-10.1); MAGNESIUM 2.4 mg/dL (1.8-2.4)
[2024-03-22 09:05] LABS: ANISOCYTOSIS 0; MACROCYTOSIS 0
[2024-03-22] MEDS: PANTOPRAZOLE 40 MG TABLET PO SCH (10:08)
[2024-03-22] MEDS: ENOXAPARIN NA (PORCINE) 40 MG/0.4 ML DISP.SYRIN SQ SCH (12:11)
[2024-03-22] MEDS: HYDROCORTISONE SOD SUCCINATE 100 MG/2 ML VIAL IVPUSH SCH (12:12)
[2024-03-22] MEDS: INSULIN ASPART SLIDING SCALE (NOVOLOG) 1 VIAL SQ SCH (12:19)
[2024-03-22] MEDS: NAPH,MB-DB/K PH,MBDB POWDER PACKET PO ONE (14:55)
[2024-03-23 09:37] LABS: BASO % 0.1 % (0-2.0); HEMATOCRIT 33.6 % (35.4-49); HEMOGLOBIN 11.2 GM/dL (11.7-16.9); LYMPH % 6.4 % (8-40); MCH 28.2 pg (25.7-33.7); MCHC 33.4 g/dl (32.0-35.9); MEAN CELL VOLUME 84.6 fl (80-96); MEAN PLT VOLUME 8.4 fl (7.5-11.1); MONO % 2.7 % (3.8-10.2); NEUT % 90.8 % (42.8-82.8); PLATELET COUNT 145 10^3/uL (134-434); RBC 3.97 M/mm3 (4.00-5.60); RDW 15.7 % (11.9-15.9)
[2024-03-23 10:05] LABS: POTASSIUM 4.1 mmol/L (3.5-5.1)
[2024-03-23] MEDS: PANTOPRAZOLE 40 MG TABLET PO SCH (10:05)
[2024-03-23] MEDS: MIDODRINE HCL 5 MG TABLET PO SCH (10:05)
[2024-03-23] MEDS: TAMSULOSIN HCL 0.4 MG CAP PO SCH (10:05)
[2024-03-23 10:07] LABS: CALCIUM 8.5 mg/dL (8.5-10.1)
[2024-03-23 10:08] LABS: ALBUMIN 2.4 g/dl (3.4-5.0); BLOOD UREA NITROGEN 37.5 mg/dL (7-18); MAGNESIUM 2.3 mg/dL (1.8-2.4)
[2024-03-23 10:11] LABS: CREATININE 1.2 mg/dL (0.55-1.3); PHOSPHOROUS 2.1 mg/dL (2.5-4.9)
[2024-03-23 10:13] LABS: BILIRUBIN,TOTAL 0.4 mg/dL (0.2-1); TOT PROT 5.6 g/dl (6.4-8.2)
[2024-03-23] MEDS: MEROPENEM 1 GM in DEXTROSE 5%-WATER 100 ML IVPB SCH (10:33)
[2024-03-23] MEDS: INSULIN ASPART SLIDING SCALE (NOVOLOG) 1 VIAL SQ SCH (11:52)
[2024-03-23] MEDS: HYDROCORTISONE SOD SUCCINATE 100 MG/2 ML VIAL IVPUSH SCH (12:09)
[2024-03-23] MEDS: INSULIN (LEVEMIR) 100 UNITS/ML UNITS SQ SCH (22:31)
[2024-03-23] MEDS: TACROLIMUS 0.5 MG CAPSULE PO SCH (22:33)
[2024-03-24] MEDS: HYDROCORTISONE SOD SUCCINATE 100 MG/2 ML VIAL IVPUSH SCH ×2 (01:02→12:15)
[2024-03-24] MEDS: TACROLIMUS ANHYDROUS 1 MG CAPSULE PO SCH (06:57)
[2024-03-24 09:49] LABS: BASO % 0.1 % (0-2.0); EOS % 0.1 % (0-4.5); HEMATOCRIT 34.2 % (35.4-49); HEMOGLOBIN 11.3 GM/dL (11.7-16.9); LYMPH % 8.9 % (8-40); MCH 28.1 pg (25.7-33.7); MCHC 33.1 g/dl (32.0-35.9); MEAN CELL VOLUME 84.9 fl (80-96); MEAN PLT VOLUME 8.5 fl (7.5-11.1); MONO % 6.2 % (3.8-10.2); NEUT % 84.7 % (42.8-82.8); PLATELET COUNT 145 10^3/uL (134-434); RBC 4.03 M/mm3 (4.00-5.60); RDW 16.2 % (11.9-15.9); WHITE BLOOD COUNT 10.3 K/mm3 (4.0-10.0)
[2024-03-24] MEDS ORDERED: INSULIN (LEVEMIR) 100 UNITS/ML UNITS SQ SCH (10:00)
[2024-03-24] MEDS ORDERED: INSULIN (NOVOLOG) ASPART 100 UNITS/ML 10ML VIAL SQ SCH (11:00)
[2024-03-24 11:18] LABS: POTASSIUM 4.2 mmol/L (3.5-5.1)
[2024-03-24 11:20] LABS: CALCIUM 8.7 mg/dL (8.5-10.1)
[2024-03-24 11:21] LABS: ALBUMIN 2.5 g/dl (3.4-5.0); BLOOD UREA NITROGEN 34.5 mg/dL (7-18)
[2024-03-24 11:24] LABS: CREATININE 1.1 mg/dL (0.55-1.3)
[2024-03-24 11:25] LABS: BILIRUBIN,TOTAL 0.4 mg/dL (0.2-1); TOT PROT 5.4 g/dl (6.4-8.2)
[2024-03-24] MEDS: INSULIN (LEVEMIR) 100 UNITS/ML UNITS SQ SCH (12:14)
[2024-03-24 12:15] LABS: BILIRUBIN,DIRECT 0.2 mg/dL (0.0-0.2)
[2024-03-24] MEDS: INSULIN (NOVOLOG) ASPART 100 UNITS/ML 10ML VIAL SQ SCH (12:43)
[2024-03-24] MEDS: INSULIN ASPART SLIDING SCALE (NOVOLOG) 1 VIAL SQ SCH (12:44)
[2024-03-24 15:09] LABS: BF WBC & OTHER NUCLEATED CELLS 125 /mm3
[2024-03-24 15:28] LABS: BODY FLUID MACROPHAGES 37 %; BODY FLUID MESOTHELIAL 1 %
[2024-03-25] MEDS: predniSONE 5 MG TABLET (UD) PO SCH (10:12)
[2024-03-25] MEDS: MIDODRINE HCL 5 MG TABLET PO SCH (10:13)
[2024-03-25 10:26] LABS: BASO % 0.1 % (0-2.0); EOS % 0.1 % (0-4.5); HEMATOCRIT 32.6 % (35.4-49); LYMPH % 11.6 % (8-40); MCH 28.4 pg (25.7-33.7); MCHC 33.9 g/dl (32.0-35.9); MEAN CELL VOLUME 83.9 fl (80-96); MEAN PLT VOLUME 8.1 fl (7.5-11.1); MONO % 5.9 % (3.8-10.2); NEUT % 82.3 % (42.8-82.8); PLATELET COUNT 145 10^3/uL (134-434); RBC 3.88 M/mm3 (4.00-5.60); RDW 15.8 % (11.9-15.9); WHITE BLOOD COUNT 9.5 K/mm3 (4.0-10.0)
[2024-03-25 10:52] LABS: POTASSIUM 4.4 mmol/L (3.5-5.1)
[2024-03-25 11:04] LABS: ALBUMIN 2.2 g/dl (3.4-5.0); CALCIUM 8.4 mg/dL (8.5-10.1)
[2024-03-25 11:08] LABS: CREATININE 0.9 mg/dL (0.55-1.3)
[2024-03-25 11:09] LABS: BILIRUBIN,TOTAL 0.7 mg/dL (0.2-1); TOT PROT 5.1 g/dl (6.4-8.2)
[2024-03-25 11:16] LABS: BLOOD UREA NITROGEN 29.2 mg/dL (7-18)
[2024-03-25] MEDS: APIXABAN 2.5 MG TABLET PO SCH (15:22)
[2024-03-25 16:11] LABS: BODY FLUID ALBUMIN 2.3 g/dL (Not Estab.)
[2024-03-25 16:59] VITALS: BMI 24.2
[2024-03-25] MEDS: ASCORBIC ACID 500 MG TABLET (FP) PO SCH (22:49)
[2024-03-26] MEDS ORDERED: DEXTROSE 50%-WATER 25 GM/50 ML DISP.SYRIN ONE (05:10)
[2024-03-26] MEDS: DEXTROSE 50%-WATER 25 GM/50 ML DISP.SYRIN IVPUSH ONE (05:21)
[2024-03-26] MEDS: ERTAPENEM SODIUM 1 GM in SODIUM CHLORIDE 50 ML IVPB SCH (10:46)
[2024-03-26 10:53] LABS: POTASSIUM 4.2 mmol/L (3.5-5.1)
[2024-03-26 10:55] LABS: CALCIUM 8.6 mg/dL (8.5-10.1)
[2024-03-26 10:56] LABS: ALBUMIN 2.3 g/dl (3.4-5.0); BLOOD UREA NITROGEN 25.3 mg/dL (7-18)
[2024-03-26 10:59] LABS: CREATININE 0.9 mg/dL (0.55-1.3)
[2024-03-26 11:00] LABS: BILIRUBIN,TOTAL 0.7 mg/dL (0.2-1); TOT PROT 5.3 g/dl (6.4-8.2)
[2024-03-26] MEDS: ENOXAPARIN NA (PORCINE) 40 MG/0.4 ML DISP.SYRIN SQ SCH (18:26)
[2024-03-26] MEDS: MULTIVITAMINS (DAILY MVI) TABLET (FP) PO SCH (18:28)
[2024-03-26] MEDS: ZINC SULFATE 220 MG CAPSULE (FP) PO SCH (18:28)
[2024-03-27] MEDS ORDERED: DEXTROSE 50%-WATER 25 GM/50 ML DISP.SYRIN ONE (06:35)
[2024-03-27] MEDS: DEXTROSE 50%-WATER 25 GM/50 ML DISP.SYRIN IVPUSH ONE (06:56)
[2024-03-27 09:59] LABS: BASO % 0.1 % (0-2.0); EOS % 1.9 % (0-4.5); HEMATOCRIT 35.8 % (35.4-49); HEMOGLOBIN 11.9 GM/dL (11.7-16.9); LYMPH % 12.6 % (8-40); MCH 28.2 pg (25.7-33.7); MCHC 33.3 g/dl (32.0-35.9); MEAN CELL VOLUME 84.7 fl (80-96); MEAN PLT VOLUME 7.5 fl (7.5-11.1); MONO % 6.8 % (3.8-10.2); NEUT % 78.6 % (42.8-82.8); PLATELET COUNT 172 10^3/uL (134-434); RBC 4.23 M/mm3 (4.00-5.60); RDW 15.9 % (11.9-15.9); WHITE BLOOD COUNT 10.8 K/mm3 (4.0-10.0)
[2024-03-27] MEDS: DOXAZOSIN MESYLATE 2 MG TABLET PO SCH (10:05)
[2024-03-27 10:38] LABS: POTASSIUM 4.3 mmol/L (3.5-5.1)
[2024-03-27] MEDS: ERTAPENEM SODIUM 1 GM in SODIUM CHLORIDE 50 ML IVPB SCH (10:39)
[2024-03-27 10:45] LABS: CALCIUM 8.4 mg/dL (8.5-10.1)
[2024-03-27 10:46] LABS: BLOOD UREA NITROGEN 18.7 mg/dL (7-18)
[2024-03-27 10:49] LABS: CREATININE 0.9 mg/dL (0.55-1.3)
[2024-03-27] MEDS ORDERED: DOXAZOSIN MESYLATE 2 MG TABLET PO SCH (17:00)
[2024-03-27] MEDS: ACETAMINOPHEN 500 MG TABLET (FP) PO PRN (21:28)
[2024-03-28 13:25] LABS: EPI CELLS 6 /uL (0-25.1); HYALINE CASTS 9 /uL (0-3.1); PH,URINE 7.5 (5.0-8.0); URINE APPEARANCE CLOUDY; URINE BACTERIA 30 /uL (0-1359); URINE BILIRUBIN NEGATIVE (NEGATIVE); URINE COLOR YELLOW; URINE GLUCOSE (UA) NEGATIVE (NEGATIVE); URINE KETONE NEGATIVE (NEGATIVE); URINE LEUK ESTERASE 2+ (NEGATIVE); URINE NITRITE NEGATIVE (NEGATIVE); URINE PROTEIN 1+ (NEGATIVE); URINE WBC 538 /uL (0-25.8)
[2024-03-28 13:56] LABS: URINE RBC 202 /uL (0-23.9); YEAST PRESENT (NEGATIVE)
[2024-03-28] MEDS: MEROPENEM 1 GM in DEXTROSE 5%-WATER 100 ML IVPB SCH (18:00)
[2024-03-29] MEDS: LACTATED RINGERS SOLUTION 1,000 ML/1,000 ML INFUS.BAG IV STA (02:26)
[2024-03-29 11:23] LABS: HEMOGLOBIN 10.6 GM/dL (11.7-16.9); MCH 28.1 pg (25.7-33.7); MCHC 33.2 g/dl (32.0-35.9); MEAN CELL VOLUME 84.8 fl (80-96); MEAN PLT VOLUME 7.5 fl (7.5-11.1); PLATELET COUNT 152 10^3/uL (134-434); RBC 3.78 M/mm3 (4.00-5.60); RDW 16.3 % (11.9-15.9); WHITE BLOOD COUNT 15.2 K/mm3 (4.0-10.0)
[2024-03-29 11:41] LABS: POTASSIUM 4.3 mmol/L (3.5-5.1)
[2024-03-29 11:43] LABS: CALCIUM 8.6 mg/dL (8.5-10.1)
[2024-03-29 11:44] LABS: MAGNESIUM 1.9 mg/dL (1.8-2.4)
[2024-03-29 11:47] LABS: CREATININE 0.9 mg/dL (0.55-1.3); PHOSPHOROUS 2.8 mg/dL (2.5-4.9)
[2024-03-29 11:48] LABS: BILIRUBIN,TOTAL 0.8 mg/dL (0.2-1); TOT PROT 4.8 g/dl (6.4-8.2)
[2024-03-29] MEDS: MEROPENEM 1 GM in DEXTROSE 5%-WATER 100 ML IVPB SCH (19:08)
[2024-03-30 10:28] LABS: BASO % 0.2 % (0-2.0); EOS % 1.7 % (0-4.5); HEMATOCRIT 30.1 % (35.4-49); HEMOGLOBIN 9.8 GM/dL (11.7-16.9); LYMPH % 9.9 % (8-40); MCH 27.6 pg (25.7-33.7); MCHC 32.5 g/dl (32.0-35.9); MEAN CELL VOLUME 85.2 fl (80-96); MEAN PLT VOLUME 7.5 fl (7.5-11.1); MONO % 4.7 % (3.8-10.2); NEUT % 83.5 % (42.8-82.8); PLATELET COUNT 163 10^3/uL (134-434); RBC 3.53 M/mm3 (4.00-5.60); RDW 15.9 % (11.9-15.9); WHITE BLOOD COUNT 13.3 K/mm3 (4.0-10.0)
[2024-03-30 11:22] LABS: BLOOD UREA NITROGEN 22.1 mg/dL (7-18); CALCIUM 8.5 mg/dL (8.5-10.1)
[2024-03-30 11:26] LABS: CREATININE 0.8 mg/dL (0.55-1.3)
[2024-03-30 11:27] LABS: BILIRUBIN,TOTAL 0.6 mg/dL (0.2-1)
[2024-03-30] MEDS ORDERED: ACETAMINOPHEN 1000 MG/100 ML BAG IVPB PRN (14:52)
[2024-03-30] MEDS: AMINO ACIDS/PROTEIN HYDROLYS 30 ML LIQUID.PKT PO SCH (17:21)
[2024-03-30] MEDS ORDERED: DOXAZOSIN MESYLATE 2 MG TABLET NGT SCH (23:24)
[2024-03-31] MEDS: TACROLIMUS ANHYDROUS 1 MG CAPSULE GT SCH (07:28)
[2024-03-31 09:35] LABS: BASO % 0.4 % (0-2.0); EOS % 0.9 % (0-4.5); HEMATOCRIT 31.3 % (35.4-49); HEMOGLOBIN 10.3 GM/dL (11.7-16.9); LYMPH % 6.6 % (8-40); MCHC 32.9 g/dl (32.0-35.9); MEAN PLT VOLUME 7.2 fl (7.5-11.1); NEUT % 87.1 % (42.8-82.8); PLATELET COUNT 196 10^3/uL (134-434); RBC 3.69 M/mm3 (4.00-5.60); RDW 16.1 % (11.9-15.9); WHITE BLOOD COUNT 12.5 K/mm3 (4.0-10.0)
[2024-03-31 10:17] LABS: POTASSIUM 4.5 mmol/L (3.5-5.1)
[2024-03-31 10:26] LABS: ALBUMIN 2.2 g/dl (3.4-5.0); BLOOD UREA NITROGEN 22.2 mg/dL (7-18); CALCIUM 8.8 mg/dL (8.5-10.1)
[2024-03-31 10:29] LABS: CREATININE 0.9 mg/dL (0.55-1.3)
[2024-03-31 10:31] LABS: BILIRUBIN,TOTAL 0.8 mg/dL (0.2-1); TOT PROT 5.5 g/dl (6.4-8.2)
[2024-03-31] MEDS: MIDODRINE HCL 5 MG TABLET NGT SCH (13:23)
[2024-03-31] MEDS: PANTOPRAZOLE SODIUM 40 MG VIAL IVPUSH SCH (13:23)
[2024-03-31] MEDS: APIXABAN 2.5 MG TABLET NGT SCH (13:23)
[2024-03-31] MEDS: predniSONE 5 MG TABLET (UD) NGT SCH (13:24)
[2024-03-31] MEDS: ZINC SULFATE 220 MG CAPSULE (FP) NGT SCH (13:24)
[2024-03-31] MEDS: TACROLIMUS 0.5 MG CAPSULE GT ONE (20:56)
[2024-03-31] MEDS: TACROLIMUS 0.5 MG CAPSULE GT SCH (22:58)
[2024-03-31] MEDS: ENOXAPARIN NA (PORCINE) 80 MG/0.8 ML DISP.SYRIN SQ SCH (23:27)
[2024-04-01] MEDS: AMINO ACIDS 4.25%/D5W 1,000 ML IV SCH ×3 (08:39→15:52)
[2024-04-01] MEDS: DEXTROSE 5%-0.45% SALINE 1,000 ML IV SCH (10:00)
[2024-04-01 10:10] LABS: BASO % 0.6 % (0-2.0); EOS % 0.1 % (0-4.5); HEMATOCRIT 31.8 % (35.4-49); HEMOGLOBIN 10.3 GM/dL (11.7-16.9); LYMPH % 4.9 % (8-40); MCH 27.7 pg (25.7-33.7); MCHC 32.6 g/dl (32.0-35.9); MEAN PLT VOLUME 6.9 fl (7.5-11.1); NEUT % 87.4 % (42.8-82.8); PLATELET COUNT 224 10^3/uL (134-434); RBC 3.74 M/mm3 (4.00-5.60); RDW 16.1 % (11.9-15.9); WHITE BLOOD COUNT 15.1 K/mm3 (4.0-10.0)
[2024-04-01 10:56] LABS: POTASSIUM 4.2 mmol/L (3.5-5.1)
[2024-04-01 10:59] LABS: CALCIUM 8.9 mg/dL (8.5-10.1)
[2024-04-01 11:00] LABS: ALBUMIN 2.2 g/dl (3.4-5.0)
[2024-04-01 11:03] LABS: CREATININE 0.9 mg/dL (0.55-1.3); PHOSPHOROUS 1.4 mg/dL (2.5-4.9)
[2024-04-01 11:04] LABS: TOT PROT 5.6 g/dl (6.4-8.2)
[2024-04-01] MEDS: ALBUTEROL SO4 0.083% IH SOL 2.5 MG/3 ML VIAL.NEB. NEB SCH (12:30)
[2024-04-01] MEDS: predniSONE 5 MG/5 ML ORAL SOLN- UNIT-DOSE CUP GT SCH (13:36)
[2024-04-01] MEDS ORDERED: AMINO ACIDS 4.25%/D5W 1,000 ML IV SCH (14:15)
[2024-04-01 16:51] LABS: ARTERIAL BLD GAS O2 SATURATION 96.2 % (95-98); ARTERIAL BLOOD GAS BASE EXCESS -1.8 mmol/L (-2-2); ARTERIAL BLOOD GAS PO2 77.6 mmHg (80-100); ARTERIAL BLOOD GAS pH 7.453 (7.350-7.450)
[2024-04-01 16:52] LABS: ALLENS TEST POSITIVE
[2024-04-01] MEDS: SODIUM CHLORIDE 1,000 ML IV STA (17:49)
[2024-04-01] MEDS: ACETAMINOPHEN 1000 MG/100 ML BAG IVPB PRN (17:51)
[2024-04-01] MEDS ORDERED: methylPREDNISolone NA SUCC 40 MG/1 ML VIAL IVPUSH SCH (18:02)
[2024-04-01] MEDS: MIDODRINE HCL 5 MG TABLET NGT SCH (18:42)
[2024-04-01] MEDS: CHLORHEXIDINE GLUCONATE 4% CLEANSER FOR DECOLONIZATION TP SCH (22:41)
[2024-04-01] MEDS: MUPIROCIN 2% TOPICAL OINTMENT FOR DECOLONIZATION NS SCH (22:42)
[2024-04-02] MEDS: SODIUM CHLORIDE 500 ML IV STA (00:35)
[2024-04-02 07:03] LABS: BASO % 0.4 % (0-2.0); EOS % 0.2 % (0-4.5); HEMATOCRIT 27.3 % (35.4-49); HEMOGLOBIN 8.8 GM/dL (11.7-16.9); MCH 27.8 pg (25.7-33.7); MCHC 32.1 g/dl (32.0-35.9); MEAN CELL VOLUME 86.5 fl (80-96); MEAN PLT VOLUME 7.4 fl (7.5-11.1); MONO % 5.9 % (3.8-10.2); NEUT % 86.5 % (42.8-82.8); PLATELET COUNT 185 10^3/uL (134-434); RBC 3.16 M/mm3 (4.00-5.60); RDW 16.2 % (11.9-15.9); WHITE BLOOD COUNT 13.6 K/mm3 (4.0-10.0)
[2024-04-02] MEDS: MIDODRINE HCL 5 MG TABLET NGT SCH ×2 (07:03→23:00)
[2024-04-02 07:15] LABS: POTASSIUM 4.4 mmol/L (3.5-5.1)
[2024-04-02 07:30] LABS: CALCIUM 8.1 mg/dL (8.5-10.1)
[2024-04-02 07:31] LABS: MAGNESIUM 1.9 mg/dL (1.8-2.4)
[2024-04-02 07:34] LABS: ALBUMIN 1.7 g/dl (3.4-5.0); CREATININE 0.9 mg/dL (0.55-1.3); PHOSPHOROUS 2.4 mg/dL (2.5-4.9)
[2024-04-02 07:35] LABS: TOT PROT 4.7 g/dl (6.4-8.2)
[2024-04-02] MEDS: ALBUTEROL SO4 0.083% IH SOL 2.5 MG/3 ML VIAL.NEB. NEB SCH (08:15)
[2024-04-02] MEDS: ENOXAPARIN NA (PORCINE) 80 MG/0.8 ML DISP.SYRIN SQ SCH (10:03)
[2024-04-02] MEDS: PANTOPRAZOLE SODIUM 40 MG VIAL IVPUSH SCH (10:03)
[2024-04-02] MEDS: ZINC SULFATE 220 MG CAPSULE (FP) NGT SCH (10:03)
[2024-04-02] MEDS: predniSONE 5 MG/5 ML ORAL SOLN- UNIT-DOSE CUP GT SCH (10:04)
[2024-04-02] MEDS ORDERED: INSULIN ASPART SLIDING SCALE (NOVOLOG) 1 VIAL SQ ONE (10:18)
[2024-04-02] MEDS: INSULIN ASPART SLIDING SCALE (NOVOLOG) 1 VIAL SQ SCH (10:20)
[2024-04-02] MEDS: MEROPENEM 1 GM in DEXTROSE 5%-WATER 100 ML IVPB SCH (11:32)
[2024-04-02] MEDS: SODIUM PHOSPHATE - 30 MM in SODIUM CHLORIDE 250 ML IVPB ONE (11:32)
[2024-04-02] MEDS: SCOPOLAMINE HYDROBROMIDE 1 PATCH PATCH.TD72 TD SCH (16:28)
[2024-04-02] MEDS ORDERED: MEROPENEM 1 GM PUSH 1 GM/20 ML DISP.SYRIN IVPUSH SCH (18:00)
[2024-04-02] MEDS: MEROPENEM 1 GM PUSH 1 GM/20 ML DISP.SYRIN IVPUSH SCH (18:04)
[2024-04-02] MEDS: SODIUM CHLORIDE 1,000 ML IV STA (18:04)
[2024-04-02] MEDS: LACTATED RINGERS SOLUTION 1,000 ML/1,000 ML INFUS.BAG IV ONE (20:05)
[2024-04-02] MEDS: DOXAZOSIN MESYLATE 2 MG TABLET NGT SCH (22:14)
[2024-04-02] MEDS: TACROLIMUS 0.5 MG CAPSULE GT SCH (22:15)
[2024-04-03] MEDS: TACROLIMUS ANHYDROUS 1 MG CAPSULE GT SCH (06:02)
[2024-04-03] MEDS: NAPH,MB-DB/K PH,MBDB POWDER PACKET PO SCH (10:18)
[2024-04-03] MEDS: AMINO ACIDS 4.25%/D5W 1,000 ML IV SCH (10:20)
[2024-04-03] MEDS ORDERED: MEROPENEM 1 GM in DEXTROSE 5%-WATER 100 ML IVPB SCH (12:00)
[2024-04-03] MEDS: MEROPENEM 1 GM PUSH 1 GM/20 ML DISP.SYRIN IVPUSH SCH (13:25)
[2024-04-03] MEDS: MEROPENEM 1 GM in DEXTROSE 5%-WATER 100 ML IVPB SCH (19:44)
[2024-04-03] MEDS: MIDODRINE HCL 5 MG TABLET NGT SCH (19:44)
[2024-04-04 07:47] LABS: BASO % 0.8 % (0-2.0); EOS % 2.5 % (0-4.5); HEMATOCRIT 27.2 % (35.4-49); HEMOGLOBIN 8.9 GM/dL (11.7-16.9); LYMPH % 11.5 % (8-40); MCHC 32.6 g/dl (32.0-35.9); MEAN PLT VOLUME 7.3 fl (7.5-11.1); MONO % 3.5 % (3.8-10.2); NEUT % 81.7 % (42.8-82.8); PLATELET COUNT 208 10^3/uL (134-434); RBC 3.16 M/mm3 (4.00-5.60); WHITE BLOOD COUNT 4.8 K/mm3 (4.0-10.0)
[2024-04-04 08:05] LABS: POTASSIUM 3.6 mmol/L (3.5-5.1)
[2024-04-04 08:07] LABS: ALBUMIN 1.7 g/dl (3.4-5.0); BLOOD UREA NITROGEN 22.8 mg/dL (7-18); MAGNESIUM 1.6 mg/dL (1.8-2.4)
[2024-04-04 08:10] LABS: CREATININE 0.7 mg/dL (0.55-1.3)
[2024-04-04 08:12] LABS: BILIRUBIN,TOTAL 0.6 mg/dL (0.2-1); TOT PROT 4.8 g/dl (6.4-8.2)
[2024-04-04] MEDS: MAGNESIUM SULFATE IN WATER 2 GM/50 ML IVPB IVPB ONE (09:38)
[2024-04-04] MEDS: POVIDONE-IODINE 10% SOLN 118 ML BOTTLE TP SCH (13:38)
[2024-04-04] MEDS: AMINO ACIDS 4.25%/D5W 1,000 ML IV SCH (17:26)
[2024-04-05 07:39] LABS: BASO % 0.8 % (0-2.0); EOS % 2.4 % (0-4.5); HEMATOCRIT 26.3 % (35.4-49); HEMOGLOBIN 8.7 GM/dL (11.7-16.9); LYMPH % 11.5 % (8-40); MCH 28.3 pg (25.7-33.7); MCHC 33.2 g/dl (32.0-35.9); MEAN CELL VOLUME 85.1 fl (80-96); MEAN PLT VOLUME 6.9 fl (7.5-11.1); MONO % 4.2 % (3.8-10.2); NEUT % 81.1 % (42.8-82.8); PLATELET COUNT 207 10^3/uL (134-434); RBC 3.09 M/mm3 (4.00-5.60); RDW 16.2 % (11.9-15.9); WHITE BLOOD COUNT 4.7 K/mm3 (4.0-10.0)
[2024-04-05 07:50] LABS: POTASSIUM 3.8 mmol/L (3.5-5.1)
[2024-04-05 08:11] LABS: ALBUMIN 1.7 g/dl (3.4-5.0); BLOOD UREA NITROGEN 18.8 mg/dL (7-18); CALCIUM 8.1 mg/dL (8.5-10.1); MAGNESIUM 1.7 mg/dL (1.8-2.4)
[2024-04-05 08:14] LABS: CREATININE 0.7 mg/dL (0.55-1.3)
[2024-04-05 08:16] LABS: BILIRUBIN,TOTAL 0.8 mg/dL (0.2-1); TOT PROT 5.1 g/dl (6.4-8.2)
[2024-04-05] MEDS: MAGNESIUM 2GM/50ML STERILE WATER IVPB IVPB ONE (09:22)
[2024-04-05] MEDS: INSULIN (LEVEMIR) 100 UNITS/ML UNITS SQ SCH (09:22)
[2024-04-05] MEDS: INSULIN (NOVOLOG) ASPART 100 UNITS/ML 10ML VIAL SQ SCH (12:00)
[2024-04-05] MEDS: MAGNESIUM SULFATE IN WATER 2 GM/50 ML IVPB IVPB ONE (13:52)
[2024-04-05] MEDS ORDERED: AMINO ACIDS 4.25%/D5W 1,000 ML IV SCH (17:00)
[2024-04-05] MEDS: AMINO ACIDS 4.25%/D5W 2,000 ML IV SCH (17:19)
[2024-04-06 06:53] LABS: BASO % 1.2 % (0-2.0); EOS % 2.8 % (0-4.5); HEMATOCRIT 27.6 % (35.4-49); LYMPH % 11.6 % (8-40); MCHC 32.6 g/dl (32.0-35.9); MEAN CELL VOLUME 86.1 fl (80-96); MONO % 4.4 % (3.8-10.2); RDW 16.2 % (11.9-15.9); WHITE BLOOD COUNT 7.5 K/mm3 (4.0-10.0)
[2024-04-06 07:11] LABS: POTASSIUM 5.1 mmol/L (3.5-5.1)
[2024-04-06 07:16] LABS: CALCIUM 8.3 mg/dL (8.5-10.1)
[2024-04-06 07:17] LABS: ALBUMIN 1.6 g/dl (3.4-5.0); BLOOD UREA NITROGEN 19.2 mg/dL (7-18); MAGNESIUM 1.9 mg/dL (1.8-2.4)
[2024-04-06 07:19] LABS: PHOSPHOROUS 1.7 mg/dL (2.5-4.9)
[2024-04-06 07:20] LABS: CREATININE 0.6 mg/dL (0.55-1.3)
[2024-04-06 07:21] LABS: BILIRUBIN,TOTAL 0.5 mg/dL (0.2-1); TOT PROT 5.2 g/dl (6.4-8.2)
[2024-04-06 09:48] LABS: PLATELET ESTIMATE ADEQUATE
[2024-04-06] MEDS: NAPH,MB-DB/K PH,MBDB POWDER PACKET PO ONE (10:24)
[2024-04-06] MEDS: MAGNESIUM 2GM/50ML STERILE WATER IVPB IVPB ONE (10:30)
[2024-04-06] MEDS ORDERED: AMINO ACIDS 4.25%/D5W 1,000 ML IV SCH (16:45)
[2024-04-06] MEDS: MEROPENEM-0.9% SODIUM CHLORIDE 1 GM/50 ML BAG IVPB SCH (19:05)
[2024-04-06] MEDS: AMINO ACID 8 % IN D14W 1,000 ML IV.SOLN IV ONE (20:58)
[2024-04-06] MEDS ORDERED: [UNRECOGNIZED DRUG - REMARK] IV SCH (21:00)
[2024-04-06] MEDS: [UNRECOGNIZED DRUG - REMARK] IV SCH (21:34)
[2024-04-07 06:04] LABS: HEMATOCRIT 26.5 % (35.4-49); HEMOGLOBIN 8.6 GM/dL (11.7-16.9); MCH 27.8 pg (25.7-33.7); MCHC 32.4 g/dl (32.0-35.9); MEAN PLT VOLUME 6.9 fl (7.5-11.1); PLATELET COUNT 191 10^3/uL (134-434); RBC 3.09 M/mm3 (4.00-5.60); RDW 15.6 % (11.9-15.9); WHITE BLOOD COUNT 5.7 K/mm3 (4.0-10.0)
[2024-04-07] MEDS ORDERED: DEXTROSE 50%-WATER 25 GM/50 ML DISP.SYRIN ONE (06:05)
[2024-04-07] MEDS: DEXTROSE 50%-WATER - 25 GM/50 ML VIAL IVPUSH ONE (06:15)
[2024-04-07 06:23] LABS: POTASSIUM 3.7 mmol/L (3.5-5.1)
[2024-04-07 06:27] LABS: CALCIUM 8.4 mg/dL (8.5-10.1)
[2024-04-07 06:28] LABS: BLOOD UREA NITROGEN 20.7 mg/dL (7-18)
[2024-04-07 06:31] LABS: CREATININE 0.6 mg/dL (0.55-1.3)
[2024-04-07 06:32] LABS: PHOSPHOROUS 2.6 mg/dL (2.5-4.9)
[2024-04-07] MEDS: DEXTROSE 50%-WATER 25 GM/50 ML DISP.SYRIN IVPUSH ONE (09:55)
[2024-04-07] MEDS: ALBUTEROL SO4 0.083% IH SOL 2.5 MG/3 ML VIAL.NEB. NEB SCH (15:50)
[2024-04-07] MEDS: MIDODRINE HCL 5 MG TABLET NGT SCH (17:14)
[2024-04-07] MEDS: INSULIN ASPART SLIDING SCALE (NOVOLOG) 1 VIAL SQ SCH (17:32)
[2024-04-07] MEDS ORDERED: DEXTROSE 50%-WATER 25 GM/50 ML DISP.SYRIN IVPUSH PRN (20:37)
[2024-04-07] MEDS: DOXAZOSIN MESYLATE 2 MG TABLET NGT SCH (21:26)
[2024-04-07] MEDS: INSULIN (LEVEMIR) 100 UNITS/ML UNITS SQ SCH (21:35)
[2024-04-07] MEDS: TACROLIMUS 0.5 MG CAPSULE GT SCH (21:38)
[2024-04-07] MEDS: ENOXAPARIN NA (PORCINE) 80 MG/0.8 ML DISP.SYRIN SQ SCH (21:39)
[2024-04-08] MEDS: INSULIN (LEVEMIR) 100 UNITS/ML UNITS SQ SCH (06:18)
[2024-04-08] MEDS: TACROLIMUS ANHYDROUS 1 MG CAPSULE GT SCH (06:23)
[2024-04-08 06:52] LABS: HEMATOCRIT 27.3 % (35.4-49); HEMOGLOBIN 9.1 GM/dL (11.7-16.9); MCH 28.2 pg (25.7-33.7); MCHC 33.3 g/dl (32.0-35.9); MEAN CELL VOLUME 84.9 fl (80-96); MEAN PLT VOLUME 7.1 fl (7.5-11.1); PLATELET COUNT 204 10^3/uL (134-434); RBC 3.21 M/mm3 (4.00-5.60); RDW 15.8 % (11.9-15.9); WHITE BLOOD COUNT 5.1 K/mm3 (4.0-10.0)
[2024-04-08 06:59] LABS: BLOOD UREA NITROGEN 20.2 mg/dL (7-18); CALCIUM 8.7 mg/dL (8.5-10.1); MAGNESIUM 1.7 mg/dL (1.8-2.4)
[2024-04-08 07:00] LABS: CREATININE 0.7 mg/dL (0.55-1.3)
[2024-04-08 07:01] LABS: PHOSPHOROUS 1.7 mg/dL (2.5-4.9)
[2024-04-08] MEDS: predniSONE 5 MG/5 ML ORAL SOLN- UNIT-DOSE CUP GT SCH (10:52)
[2024-04-08] MEDS: PANTOPRAZOLE SODIUM 40 MG VIAL IVPUSH SCH (10:52)
[2024-04-08] MEDS: ZINC SULFATE 220 MG CAPSULE (FP) NGT SCH (10:52)
[2024-04-08] MEDS: NAPH,MB-DB/K PH,MBDB POWDER PACKET PO ONE (10:52)
[2024-04-08] MEDS: MAGNESIUM SULFATE IN WATER 2 GM/50 ML IVPB IVPB ONE (10:52)
[2024-04-08] MEDS ORDERED: NAPH,MB-DB/K PH,MBDB POWDER PACKET PO SCH (14:45)
[2024-04-08] MEDS: SCOPOLAMINE HYDROBROMIDE 1 PATCH PATCH.TD72 TD SCH (16:30)
[2024-04-08] MEDS: NAPH,MB-DB/K PH,MBDB POWDER PACKET NGT SCH (16:30)
[2024-04-09 07:42] LABS: HEMATOCRIT 28.2 % (35.4-49); HEMOGLOBIN 9.6 GM/dL (11.7-16.9); MCH 28.6 pg (25.7-33.7); MEAN CELL VOLUME 84.2 fl (80-96); MEAN PLT VOLUME 7.4 fl (7.5-11.1); PLATELET COUNT 261 10^3/uL (134-434); RBC 3.35 M/mm3 (4.00-5.60); RDW 16.5 % (11.9-15.9); WHITE BLOOD COUNT 4.9 K/mm3 (4.0-10.0)
[2024-04-09 07:53] LABS: POTASSIUM 4.7 mmol/L (3.5-5.1)
[2024-04-09 08:03] LABS: BLOOD UREA NITROGEN 17.7 mg/dL (7-18)
[2024-04-09 08:04] LABS: CALCIUM 8.5 mg/dL (8.5-10.1)
[2024-04-09 08:05] LABS: MAGNESIUM 1.9 mg/dL (1.8-2.4)
[2024-04-09 08:06] LABS: CREATININE 0.7 mg/dL (0.55-1.3)
[2024-04-09 08:07] LABS: PHOSPHOROUS 2.4 mg/dL (2.5-4.9)
[2024-04-09 13:47] LABS: ARTERIAL BLD GAS O2 SATURATION 95.5 % (95-98); ARTERIAL BLOOD GAS BASE EXCESS 4.3 mmol/L (-2-2); ARTERIAL BLOOD GAS PO2 73.2 mmHg (80-100); ARTERIAL BLOOD GAS pH 7.467 (7.350-7.450)
[2024-04-09 13:48] LABS: ALLENS TEST POSITIVE
[2024-04-09] MEDS ORDERED: GLUCAGON 1 MG KIT ONE (14:36)
[2024-04-09] MEDS ORDERED: FENTANYL CITRATE/PF 50 MCG/ML VIAL ONE (14:36)
[2024-04-09] MEDS: FENTANYL CITRATE/PF 50 MCG/ML VIAL IVPUSH ONE (14:52)
[2024-04-09] MEDS: GLUCAGON 1 MG KIT IVPUSH ONE (14:54)
[2024-04-09] MEDS ORDERED: AMINO ACIDS 4.25%/D5W 1,000 ML IV SCH (17:30)
[2024-04-09] MEDS ORDERED: AMINO ACID 8 % IN D14W 1,000 ML IV.SOLN IVPB SCH ×2 (20:00→20:03)
[2024-04-09] MEDS: [UNRECOGNIZED DRUG - REMARK] IV SCH (21:00)
[2024-04-10 06:46] LABS: HEMATOCRIT 28.5 % (35.4-49); HEMOGLOBIN 9.2 GM/dL (11.7-16.9); MCH 27.7 pg (25.7-33.7); MCHC 32.3 g/dl (32.0-35.9); MEAN CELL VOLUME 85.8 fl (80-96); MEAN PLT VOLUME 6.8 fl (7.5-11.1); PLATELET COUNT 251 10^3/uL (134-434); RBC 3.32 M/mm3 (4.00-5.60); RDW 16.4 % (11.9-15.9); WHITE BLOOD COUNT 3.7 K/mm3 (4.0-10.0)
[2024-04-10 07:03] LABS: POTASSIUM 4.3 mmol/L (3.5-5.1)
[2024-04-10 07:06] LABS: CALCIUM 8.6 mg/dL (8.5-10.1)
[2024-04-10 07:07] LABS: BLOOD UREA NITROGEN 15.1 mg/dL (7-18)
[2024-04-10 07:08] LABS: MAGNESIUM 1.8 mg/dL (1.8-2.4)
[2024-04-10 07:09] LABS: BILIRUBIN,TOTAL 0.6 mg/dL (0.2-1)
[2024-04-10 07:10] LABS: CREATININE 0.7 mg/dL (0.55-1.3)
[2024-04-10 07:11] LABS: PHOSPHOROUS 2.7 mg/dL (2.5-4.9); TOT PROT 5.5 g/dl (6.4-8.2)
[2024-04-10 07:22] LABS: ALBUMIN 2.1 g/dl (3.4-5.0)
[2024-04-10] MEDS ORDERED: [UNRECOGNIZED DRUG - REMARK] IV SCH (14:15)
[2024-04-10] MEDS: IOHEXOL (OMNIPAQUE IV) 350 MG/ML - 100 ML BOTTLE PEG ONE (15:00)
[2024-04-11] MEDS: SODIUM CHLORIDE 1,000 ML IV STA (10:20)
[2024-04-12 07:46] LABS: HEMATOCRIT 28.7 % (35.4-49); HEMOGLOBIN 9.4 GM/dL (11.7-16.9); MCH 28.3 pg (25.7-33.7); MCHC 32.9 g/dl (32.0-35.9); MEAN PLT VOLUME 7.3 fl (7.5-11.1); PLATELET COUNT 241 10^3/uL (134-434); RBC 3.33 M/mm3 (4.00-5.60); RDW 16.5 % (11.9-15.9); WHITE BLOOD COUNT 7.1 K/mm3 (4.0-10.0)
[2024-04-12 08:00] LABS: POTASSIUM 4.5 mmol/L (3.5-5.1)
[2024-04-12 08:01] LABS: CALCIUM 8.7 mg/dL (8.5-10.1)
[2024-04-12 08:03] LABS: MAGNESIUM 1.5 mg/dL (1.8-2.4)
[2024-04-12 08:05] LABS: CREATININE 0.7 mg/dL (0.55-1.3)
[2024-04-12 08:09] LABS: PHOSPHOROUS 2.3 mg/dL (2.5-4.9)
[2024-04-12] MEDS: MAGNESIUM 2GM/50ML STERILE WATER IVPB IVPB ONE (11:15)
[2024-04-12] MEDS: NAPH,MB-DB/K PH,MBDB POWDER PACKET PO SCH (11:15)
[2024-04-12] MEDS: MAGNESIUM SULF 50% (8.12 MEQ/2 ML-1 GM VIAL) IVPB ONE (14:43)
[2024-04-13 07:11] LABS: HEMATOCRIT 28.6 % (35.4-49); HEMOGLOBIN 9.5 GM/dL (11.7-16.9); MCH 28.3 pg (25.7-33.7); MCHC 33.1 g/dl (32.0-35.9); MEAN CELL VOLUME 85.4 fl (80-96); MEAN PLT VOLUME 7.3 fl (7.5-11.1); PLATELET COUNT 230 10^3/uL (134-434); RBC 3.35 M/mm3 (4.00-5.60); RDW 16.9 % (11.9-15.9); WHITE BLOOD COUNT 8.4 K/mm3 (4.0-10.0)
[2024-04-13 07:33] LABS: POTASSIUM 4.8 mmol/L (3.5-5.1)
[2024-04-13 07:36] LABS: CALCIUM 8.9 mg/dL (8.5-10.1)
[2024-04-13 07:37] LABS: ALBUMIN 2.3 g/dl (3.4-5.0); BLOOD UREA NITROGEN 16.8 mg/dL (7-18)
[2024-04-13 07:40] LABS: CREATININE 0.9 mg/dL (0.55-1.3); PHOSPHOROUS 3.3 mg/dL (2.5-4.9)
[2024-04-13 07:41] LABS: BILIRUBIN,TOTAL 0.6 mg/dL (0.2-1); TOT PROT 5.8 g/dl (6.4-8.2)
[2024-04-13] MEDS: APIXABAN 5 MG TABLET NGT SCH (21:27)
[2024-04-14 06:38] LABS: BASO % 0.6 % (0-2.0); EOS % 1.6 % (0-4.5); HEMATOCRIT 25.2 % (35.4-49); HEMOGLOBIN 8.4 GM/dL (11.7-16.9); LYMPH % 9.6 % (8-40); MCH 28.5 pg (25.7-33.7); MCHC 33.4 g/dl (32.0-35.9); MEAN CELL VOLUME 85.4 fl (80-96); MEAN PLT VOLUME 7.5 fl (7.5-11.1); MONO % 7.6 % (3.8-10.2); NEUT % 80.6 % (42.8-82.8); PLATELET COUNT 228 10^3/uL (134-434); RBC 2.96 M/mm3 (4.00-5.60); RDW 17.2 % (11.9-15.9); WHITE BLOOD COUNT 9.6 K/mm3 (4.0-10.0)
[2024-04-14 06:55] LABS: POTASSIUM 4.6 mmol/L (3.5-5.1)
[2024-04-14 07:00] LABS: ALBUMIN 2.1 g/dl (3.4-5.0); CALCIUM 8.8 mg/dL (8.5-10.1)
[2024-04-14 07:01] LABS: BLOOD UREA NITROGEN 20.7 mg/dL (7-18)
[2024-04-14 07:04] LABS: CREATININE 0.8 mg/dL (0.55-1.3)
[2024-04-14 07:05] LABS: BILIRUBIN,TOTAL 0.6 mg/dL (0.2-1); TOT PROT 5.4 g/dl (6.4-8.2)
[2024-04-14] MEDS: MIDODRINE HCL 5 MG TABLET GT SCH (08:58)
[2024-04-14] MEDS: APIXABAN 5 MG TABLET GT SCH (09:58)
[2024-04-14] MEDS: ZINC SULFATE 220 MG CAPSULE (FP) GT SCH (09:58)
[2024-04-14] MEDS: DOXAZOSIN MESYLATE 2 MG TABLET GT SCH (23:02)
[2024-04-15] MEDS ORDERED: INSULIN (LEVEMIR) 100 UNITS/ML UNITS SQ ONE (06:39)
[2024-04-15 06:49] LABS: BASO % 0.4 % (0-2.0); EOS % 1.2 % (0-4.5); HEMATOCRIT 27.1 % (35.4-49); HEMOGLOBIN 8.7 GM/dL (11.7-16.9); LYMPH % 7.7 % (8-40); MCH 27.6 pg (25.7-33.7); MCHC 32.2 g/dl (32.0-35.9); MEAN CELL VOLUME 85.9 fl (80-96); MEAN PLT VOLUME 7.7 fl (7.5-11.1); MONO % 6.3 % (3.8-10.2); NEUT % 84.4 % (42.8-82.8); PLATELET COUNT 231 10^3/uL (134-434); RBC 3.16 M/mm3 (4.00-5.60); RDW 16.9 % (11.9-15.9); WHITE BLOOD COUNT 11.2 K/mm3 (4.0-10.0)
[2024-04-15 07:06] LABS: POTASSIUM 4.6 mmol/L (3.5-5.1)
[2024-04-15 07:12] LABS: CALCIUM 8.7 mg/dL (8.5-10.1)
[2024-04-15 07:14] LABS: ALBUMIN 2.2 g/dl (3.4-5.0); BLOOD UREA NITROGEN 28.2 mg/dL (7-18)
[2024-04-15 07:16] LABS: CREATININE 0.9 mg/dL (0.55-1.3)
[2024-04-15 07:17] LABS: BILIRUBIN,TOTAL 0.7 mg/dL (0.2-1)
[2024-04-15 07:18] LABS: TOT PROT 5.7 g/dl (6.4-8.2)
[2024-04-15] MEDS ORDERED: DEXTROSE 50%-WATER 25 GM/50 ML DISP.SYRIN IVPUSH PRN (17:27)
[2024-04-15] MEDS: ALBUTEROL SO4 0.083% IH SOL 2.5 MG/3 ML VIAL.NEB. NEB SCH (20:23)
[2024-04-15] MEDS: INSULIN (LEVEMIR) 100 UNITS/ML UNITS SQ SCH (21:33)
[2024-04-15] MEDS: APIXABAN 5 MG TABLET GT SCH (21:33)
[2024-04-15] MEDS: INSULIN ASPART SLIDING SCALE (NOVOLOG) 1 VIAL SQ SCH (21:38)
[2024-04-15] MEDS: DOXAZOSIN MESYLATE 2 MG TABLET GT SCH (21:44)
[2024-04-15] MEDS: TACROLIMUS 0.5 MG CAPSULE GT SCH (21:44)
[2024-04-15] MEDS: MIDODRINE HCL 5 MG TABLET GT SCH (22:35)
[2024-04-16] MEDS: INSULIN (LEVEMIR) 100 UNITS/ML UNITS SQ SCH (06:14)
[2024-04-16] MEDS: TACROLIMUS ANHYDROUS 1 MG CAPSULE GT SCH (06:55)
[2024-04-16] MEDS: PANTOPRAZOLE SODIUM 40 MG VIAL IVPUSH SCH (10:18)
[2024-04-16] MEDS: ZINC SULFATE 220 MG CAPSULE (FP) GT SCH (10:19)
[2024-04-16] MEDS: predniSONE 5 MG/5 ML ORAL SOLN- UNIT-DOSE CUP GT SCH (10:19)
[2024-04-16] MEDS: POVIDONE-IODINE 10% SOLN 118 ML BOTTLE TP SCH (10:52)
[2024-04-16 11:01] LABS: BASO % 0.7 % (0-2.0); EOS % 1.4 % (0-4.5); HEMOGLOBIN 8.2 GM/dL (11.7-16.9); LYMPH % 12.9 % (8-40); MCH 28.1 pg (25.7-33.7); MEAN CELL VOLUME 85.3 fl (80-96); MEAN PLT VOLUME 7.8 fl (7.5-11.1); MONO % 5.9 % (3.8-10.2); NEUT % 79.1 % (42.8-82.8); PLATELET COUNT 231 10^3/uL (134-434); RBC 2.93 M/mm3 (4.00-5.60); RDW 16.7 % (11.9-15.9); WHITE BLOOD COUNT 9.7 K/mm3 (4.0-10.0)
[2024-04-16 11:25] LABS: POTASSIUM 4.2 mmol/L (3.5-5.1)
[2024-04-16 11:34] LABS: ALBUMIN 2.1 g/dl (3.4-5.0); BLOOD UREA NITROGEN 27.6 mg/dL (7-18); CALCIUM 9.1 mg/dL (8.5-10.1)
[2024-04-16 11:35] LABS: BILIRUBIN,TOTAL 0.8 mg/dL (0.2-1); TOT PROT 5.7 g/dl (6.4-8.2)
[2024-04-16 11:37] LABS: CREATININE 1.1 mg/dL (0.55-1.3)
[2024-04-16 15:14] VITALS: RESP 20
[2024-04-16 22:31] VITALS: BP 110/59; PULSE 116; TEMP 99.5
[2024-04-17] MEDS ORDERED: SCOPOLAMINE HYDROBROMIDE 1 PATCH PATCH.TD72 TD SCH (16:15)
== END 2024-04-17 01:00 | DRG 871 ==
LOC: JER 22:10 → JERBED 23:06 → J8W 03-20 05:39 → J4S 03-20 15:51 → JICU 03-20 18:33 → J6S 03-22 23:18 → J4S 04-01 14:54 → JICU 04-01 17:19 → J2W 04-07 00:59 → J8W 04-15 17:01
PROVIDERS: ADMIT Internal Medicine; ATTEND Internal Medicine
PROC: 03HY32Z Insertion of Monitoring Device into Upper Artery, Percutaneous Approach (ICD-10-PCS; principal; 2024-03-20)
PROC: 4A133B1 Monitoring of Arterial Pressure, Peripheral, Percutaneous Approach (ICD-10-PCS; 2024-03-20)
PROC: 4A133J1 Monitoring of Arterial Pulse, Peripheral, Percutaneous Approach (ICD-10-PCS; 2024-03-20)
PROC: 04HY32Z Insertion of Monitoring Device into Lower Artery, Percutaneous Approach (ICD-10-PCS; 2024-03-21)
PROC: 4A133B1 Monitoring of Arterial Pressure, Peripheral, Percutaneous Approach (ICD-10-PCS; 2024-03-21)
PROC: 4A133J1 Monitoring of Arterial Pulse, Peripheral, Percutaneous Approach (ICD-10-PCS; 2024-03-21)
PROC: 06HM33Z Insertion of Infusion Device into Right Femoral Vein, Percutaneous Approach (ICD-10-PCS; 2024-03-21)
PROC: B54BZZA Ultrasonography of Right Lower Extremity Veins, Guidance (ICD-10-PCS; 2024-03-21)
PROC: 0W9930Z Drainage of Right Pleural Cavity with Drainage Device, Percutaneous Approach (ICD-10-PCS; 2024-03-24)
PROC: 0WP9X0Z Removal of Drainage Device from Right Pleural Cavity, External Approach (ICD-10-PCS; 2024-03-31)
PROC: 0DH63UZ Insertion of Feeding Device into Stomach, Percutaneous Approach (ICD-10-PCS; 2024-04-09)
DX: A41.51 Sepsis due to Escherichia coli [E. coli] (principal); G92.8 Other toxic encephalopathy; J69.0 Pneumonitis due to inhalation of food and vomit; J96.01 Acute respiratory failure with hypoxia; N39.0 Urinary tract infection, site not specified; Z94.0 Kidney transplant status; E46 Unspecified protein-calorie malnutrition; N17.9 Acute kidney failure, unspecified; J90 Pleural effusion, not elsewhere classified; J93.83 Other pneumothorax; I25.10 Atherosclerotic heart disease of native coronary artery without angina pectoris; I48.91 Unspecified atrial fibrillation; N31.9 Neuromuscular dysfunction of bladder, unspecified; E11.9 Type 2 diabetes mellitus without complications; F03.90 Unspecified dementia, unspecified severity, without behavioral disturbance, psychotic disturbance, mood disturbance, and anxiety; R65.20 Severe sepsis without septic shock; E11.65 Type 2 diabetes mellitus with hyperglycemia; D64.9 Anemia, unspecified; I12.9 Hypertensive chronic kidney disease with stage 1 through stage 4 chronic kidney disease, or unspecified chronic kidney disease; E11.22 Type 2 diabetes mellitus with diabetic chronic kidney disease; N18.9 Chronic kidney disease, unspecified; R13.10 Dysphagia, unspecified; Z68.21 Body mass index [BMI] 21.0-21.9, adult; N40.0 Benign prostatic hyperplasia without lower urinary tract symptoms; E11.649 Type 2 diabetes mellitus with hypoglycemia without coma; R62.7 Adult failure to thrive
CPT/HCPCS: 0241U-QW; 32552; 32557; 36415; 36600; 49440; 70450-TC; 71045-TC-FY; 71046-TC-FY; 71250-TC; 74018-TC-FY; 74176-TC; 74230-TC-FY; 80048; 80053; 80197; 81003; 82042; 82140; 82150; 82248; 82550; 82607; 82728; 82746; 82803; 82945; 82962; 83540; 83550; 83605; 83615; 83735; 83986; 84100; 84157; 84443; 84478; 84484; 85025; 85027; 85045; 85610; 85730; 86780; 86850; 86900; 86901; 87040; 87070; 87075; 87086; 87102; 87116; 87186; 87205; 87206; 87210; 87324; 87449; 87481; 87635; 88108; 88305-TC; 92611-GN; 93005; 93010; 93970-TC; 94640; 97116-GP; 97162-GP; 99285-25; J0131

== ENCOUNTER 2024-08-12 22:48 | Observation (INO) | payer OTHER ==
[2024-08-13 00:33] LABS: BASO % 1.2 % (0-2.0); EOS % 3.7 % (0-4.5); HEMATOCRIT 25.4 % (35.4-49); HEMOGLOBIN 8.1 GM/dL (11.7-16.9); LYMPH % 28.4 % (8-40); MCH 27.6 pg (25.7-33.7); MCHC 32.1 g/dl (32.0-35.9); MEAN CELL VOLUME 86.1 fl (80-96); MEAN PLT VOLUME 9.2 fl (7.5-11.1); MONO % 6.9 % (3.8-10.2); NEUT % 59.8 % (42.8-82.8); PLATELET COUNT 168 10^3/uL (134-434); RBC 2.95 M/mm3 (4.00-5.60); WHITE BLOOD COUNT 6.7 K/mm3 (4.0-10.0)
[2024-08-13 00:41] LABS: INR 1.6 (0.83-1.09); PROTHROMBIN TIME (PATIENT) 17.4 SEC (9.7-13.0)
[2024-08-13 00:44] LABS: ACTIVATED PTT 38.7 SECONDS (25.2-36.5)
[2024-08-13 01:10] LABS: ALBUMIN 2.6 g/dl (3.4-5.0); BLOOD UREA NITROGEN 28.4 mg/dL (7-18); CALCIUM 8.4 mg/dL (8.5-10.1)
[2024-08-13 01:13] LABS: CREATININE 0.6 mg/dL (0.55-1.3)
[2024-08-13 01:14] LABS: BILIRUBIN,TOTAL 0.3 mg/dL (0.2-1)
[2024-08-13 03:02] LABS: ANISOCYTOSIS 1+; MACROCYTOSIS 0; OVALOCYTE 1+
[2024-08-13] MEDS: DEXTROSE 5%-0.45% SALINE 1,000 ML IV SCH (03:51)
[2024-08-13] MEDS: predniSONE 5 MG TABLET (UD) GT SCH (09:28)
[2024-08-13] MEDS: TAMSULOSIN HCL 0.4 MG CAP PO SCH (09:28)
[2024-08-13] MEDS: TACROLIMUS 0.5 MG CAPSULE GT SCH (10:54)
[2024-08-13 12:44] LABS: BASO % 0.8 % (0-2.0); EOS % 3.9 % (0-4.5); HEMATOCRIT 26.6 % (35.4-49); HEMOGLOBIN 8.4 GM/dL (11.7-16.9); LYMPH % 17.1 % (8-40); MCH 27.4 pg (25.7-33.7); MCHC 31.7 g/dl (32.0-35.9); MEAN CELL VOLUME 86.3 fl (80-96); MEAN PLT VOLUME 9.5 fl (7.5-11.1); MONO % 4.8 % (3.8-10.2); NEUT % 73.4 % (42.8-82.8); PLATELET COUNT 164 10^3/uL (134-434); RBC 3.08 M/mm3 (4.00-5.60); RDW 20.4 % (11.9-15.9); WHITE BLOOD COUNT 6.6 K/mm3 (4.0-10.0)
[2024-08-13 13:07] LABS: POTASSIUM 4.2 mmol/L (3.5-5.1)
[2024-08-13 13:09] LABS: BLOOD UREA NITROGEN 22.6 mg/dL (7-18); CALCIUM 8.4 mg/dL (8.5-10.1)
[2024-08-13 13:12] LABS: CREATININE 0.6 mg/dL (0.55-1.3)
[2024-08-13 17:24] VITALS: BMI 19.8
[2024-08-13] MEDS: SODIUM CHLORIDE 1,000 ML IV SCH (21:31)
[2024-08-13] MEDS: ATORVASTATIN CA 80 MG TABLET (FP) GT SCH (21:32)
[2024-08-14] MEDS: APIXABAN 5 MG TABLET GT SCH (10:09)
[2024-08-14 10:47] VITALS: RESP 17
[2024-08-14 14:47] VITALS: BP 106/64; PULSE 68; TEMP 98.4
[2024-08-14] MEDS ORDERED: OLANZapine 2.5 MG TABLET PO SCH (22:00)
== END 2024-08-14 14:47 ==
LOC: JER 22:48 → JERBED 08-13 00:14 → J5S 08-13 04:50
PROVIDERS: ADMIT Internal Medicine; ATTEND Family Medicine
PROC: 0T2BX0Z Change Drainage Device in Bladder, External Approach (ICD-10-PCS; principal; 2024-08-13)
PROC: 3E0337Z Introduction of Electrolytic and Water Balance Substance into Peripheral Vein, Percutaneous Approach (ICD-10-PCS; 2024-08-13)
DX: T83.9XXA Unspecified complication of genitourinary prosthetic device, implant and graft, initial encounter (principal); X58.XXXA Exposure to other specified factors, initial encounter; I48.91 Unspecified atrial fibrillation; I11.9 Hypertensive heart disease without heart failure; Z79.01 Long term (current) use of anticoagulants; E11.22 Type 2 diabetes mellitus with diabetic chronic kidney disease; I12.0 Hypertensive chronic kidney disease with stage 5 chronic kidney disease or end stage renal disease; N18.6 End stage renal disease; Z99.2 Dependence on renal dialysis; N31.9 Neuromuscular dysfunction of bladder, unspecified; Z94.0 Kidney transplant status; Z87.891 Personal history of nicotine dependence; Y99.8 Other external cause status
CPT/HCPCS: 36415; 51102; 51705; 71045-TC-FY; 74018-TC-FY; 75984-FY; 80048; 80053; 82272; 82728; 82962; 83540; 83550; 85025; 85610; 85730; 86850; 86900; 86901; 99285-25; G0378

== ENCOUNTER 2024-08-17 02:38 | Emergency (ER) | payer OTHER ==
[2024-08-17 02:52] VITALS: BMI 25.8
[2024-08-17 06:58] LABS: EOS % 2.5 % (0-4.5); HEMATOCRIT 29.7 % (35.4-49); HEMOGLOBIN 9.5 GM/dL (11.7-16.9); LYMPH % 30.9 % (8-40); MCH 27.6 pg (25.7-33.7); MCHC 31.9 g/dl (32.0-35.9); MEAN CELL VOLUME 86.6 fl (80-96); MEAN PLT VOLUME 8.6 fl (7.5-11.1); MONO % 6.4 % (3.8-10.2); NEUT % 59.2 % (42.8-82.8); PLATELET COUNT 178 10^3/uL (134-434); RBC 3.43 M/mm3 (4.00-5.60); RDW 19.6 % (11.9-15.9); WHITE BLOOD COUNT 7.2 K/mm3 (4.0-10.0)
[2024-08-17 07:17] LABS: INR 1.66 (0.83-1.09); PROTHROMBIN TIME (PATIENT) 18.1 SEC (9.7-13.0)
[2024-08-17 07:20] LABS: ACTIVATED PTT 38.9 SECONDS (25.2-36.5)
[2024-08-17 07:29] LABS: POTASSIUM 4.4 mmol/L (3.5-5.1)
[2024-08-17 07:31] LABS: ALBUMIN 2.6 g/dl (3.4-5.0); CALCIUM 8.4 mg/dL (8.5-10.1)
[2024-08-17 07:35] LABS: CREATININE 0.7 mg/dL (0.55-1.3)
[2024-08-17 07:36] LABS: BILIRUBIN,TOTAL 0.4 mg/dL (0.2-1)
[2024-08-17 07:39] LABS: TOT PROT 6.2 g/dl (6.4-8.2)
[2024-08-17 12:37] VITALS: BP 103/60; PULSE 68; RESP 17; TEMP 98.1
== END 2024-08-17 12:15 | disposition home or self-care (01) ==
LOC: JER 02:38
DX: K94.23 Gastrostomy malfunction (principal)
CPT/HCPCS: 36415; 74018-TC-FY; 74177-TC; 80053; 85025; 85610; 85730; 99285-25; Q9967

== ENCOUNTER 2024-09-06 06:17 | Emergency (ER) | payer OTHER ==
[2024-09-06 06:40] VITALS: RESP 19; TEMP 98.6; BMI 20.9
[2024-09-06 11:44] LABS: ABSOLUTE IMMATURE GRANULOCYTES 0.03 x10^3/uL (0.0-0.031); BASOPHILS # 0.04 x10^3/uL (0.01-0.08); EOSINOPHIL % 2.1 % (0.8-7.0); EOSINOPHILS # 0.17 x10^3/uL (0.04-0.54); HEMATOCRIT 36.2 % (40.1-51.0); HEMOGLOBIN 10.9 g/dL (13.7-17.5); MCHC 30.1 g/dl (32.3-36.5); MEAN CELL VOLUME 87.7 fl (79.0-92.2); MEAN PLT VOLUME 10.4 fl (9.4-12.4); MONOCYTE # 0.46 x10^3/uL (0.30-0.82); MONOCYTE % 5.6 % (5.3-12.2); PLATELET COUNT # 173 x10^3/uL (163-337); RDW 17.8 % (12.2-16.6)
[2024-09-06 11:52] LABS: INR 0.99 (0.83-1.09); PROTHROMBIN TIME (PATIENT) 10.9 SEC (9.7-13.0)
[2024-09-06 11:55] LABS: ACTIVATED PTT 33.4 SECONDS (25.2-36.5)
[2024-09-06 12:01] VITALS: BP 119/76; PULSE 90
[2024-09-06 12:05] LABS: CALCIUM 9.3 mg/dL (8.5-10.1)
[2024-09-06 12:06] LABS: ALBUMIN 3.2 g/dl (3.4-5.0); BLOOD UREA NITROGEN 27.5 mg/dL (7-18)
[2024-09-06 12:10] LABS: CREATININE 0.8 mg/dL (0.55-1.3)
[2024-09-06 12:11] LABS: BILIRUBIN,TOTAL 0.5 mg/dL (0.2-1); TOT PROT 6.9 g/dl (6.4-8.2)
[2024-09-06] MEDS: IOHEXOL (OMNIPAQUE IV) 350 MG/ML - 100 ML BOTTLE GT ONE (13:22)
== END 2024-09-06 16:55 ==
LOC: JER 06:17
DX: K94.23 Gastrostomy malfunction (principal); T83.091A Other mechanical complication of indwelling urethral catheter, initial encounter
CPT/HCPCS: 36415; 74018-TC-FY; 80053; 85025; 85610; 85730; 86850; 86900; 86901; 99284-25